=== PATIENT | female | born 1960 | race Caucasian/White ===

== ENCOUNTER 2018-05-15 15:06 | Emergency (ER) | payer SELFPAY ==
[2018-05-15 15:15] VITALS: BP 140/76
--- NOTE | 2018-05-15 15:19 | UC ---
General HPI - HPI Summary HPI Summary: Pleasant 58 yo female, brought here by coworker. C/o 6-7 chest pain, midsternal at work today approx 14:30. No hx of pain like this before. Currently pain 5-6. No sob. No GI issues. Does occasionally have "heartburn, " but only at night and very infrequently. Has not had HB sx in the past. No melena / brbpr. No urinary sx. No rash. Does not take antacids, nor asa. Reports has an indicator for Negin's dz, but does not have the syndrome. meds trazodone amlodipine allergies codeine pcn - History of Current Complaint Chief Complaint: UCChestPain Stated Complaint: CHEST COMPLAINT Hx Obtained From: Patient Pain Intensity: 5 - Allergy/Home Medications Allergies/Adverse Reactions: Allergies Allergy/AdvReac Type Severity Reaction Status Date / Time codeine Allergy Swelling Verified 05/15/18 16:25 Penicillins Allergy Swelling Verified 05/15/18 16:25 Home Medications: Home Medications amLODIPine TAB* [Norvasc 5 mg TAB*] 10 mg PO DAILY 05/15/18 [History Confirmed 05/15/18] traZODone TAB* [Desyrel TAB*] 50 mg PO BEDTIME 05/15/18 [History Confirmed 05/15] PMH/Surg Hx/FS Hx/Imm Hx Previously Healthy: No - Surgical History Surgical History: Yes Surgery Procedure, Year, and Place: partial hysterectomy - Family History Known Family History: Positive: Other - cancer - Social History Occupation: Employed Full-time Alcohol Use: Daily Substance Use Type: None Smoking Status (MU): Former Smoker Review of Systems All Other Systems Reviewed And Are Negative: Yes Constitutional: Positive: Other - see hpi Skin: Positive: Other - see hpi Eyes: Positive: Other - see hpi ENT: Positive: Other - see hpi Respiratory: Positive: Other - see hpi Cardiovascular: Positive: Other - see hpi Gastrointestinal: Positive: Other - see hpi Genitourinary: Positive: Other - see hpi Motor: Positive: Other - see hpi Neurovascular: Positive: Other Musculoskeletal: Positive: Other: - see hpi Neurological: Positive: Other - see hpi Psychological: Positive: Negative Is Patient Immunocompromised?: No Physical Exam Triage Information Reviewed: Yes Appearance: Well-Appearing, Well-Nourished - sitting up, conversing easily and appropriately in full sentences Vital Signs: Initial Vital Signs Temp 99.0 F 05/15/18 15:13 Pulse 73 05/15/18 15:13 Resp 18 05/15/18 15:13 BP 140/76 05/15/18 15:13 Pulse Ox 97 05/15/18 15:13 Vital Signs Reviewed: Yes Eye Exam: Normal - grossly normal ENT Exam: Normal Neck: Positive: Supple, Nontender Respiratory Exam: Normal, Other - some tender mid sternal area but w/o point tenderness Respiratory: Positive: Chest non-tender, Lungs clear, Normal breath sounds, No respiratory distress, No accessory muscle use Cardiovascular Exam: Normal Cardiovascular: Positive: RRR, No Murmur, Pulses Normal, Tachycardia Abdominal Exam: Normal Abdomen Description: Positive: Nontender Musculoskeletal Exam: Normal Neurological Exam: Normal - grossly nonfocal Psychological Exam: Normal - conversing easily and appropriately Skin Exam: Normal Course/Dx - Course Course Of Treatment: ekg nsr at 73 bpm Called ED 15:40. Providers occupied, per Miguel A at the [employer], charge nurse will be notified. Pt offered EMS, but respecfully declines. Friend will drive. [Asa 81 mg po x 4 ptd. Questions as posed answered to the best of my ability. - Diagnoses Provider Diagnosis: Chest pain Discharge - Sign-Out/Discharge Documenting (check all that apply): Patient Departure All imaging exams completed and their final reports reviewed: No Studies - Discharge Plan Condition: Guarded Disposition: HOME-RECOMMEND TO ED Patient Education Materials: Chest Pain (ED) Referrals: Nette Arguelles MD [Primary Care Provider] - Additional Instructions: Please go directly to the Emergency Department. Call 911 if problems in the meantime. - Billing Disposition and Condition Condition: GUARDED Disposition: Home-Recommend to ED
[2018-05-15] MEDS ORDERED: Aspirin 81 mg CHEW TAB* 81 MG TAB.CHEW PO ONE (15:37)
[2018-05-15] MEDS ORDERED: Aspirin 81 mg CHEW TAB* 81 MG TAB.CHEW ONE (15:38)
--- OUTSIDE RECORDS SUMMARY | 2018-05-15 15:40 | XMS REPORT | Continuity of Care Document ---
:1960 External Reference #:[id number] Author Name Nette Arguelles M.D. Address [address] [place] [address] Care Team Providers Name Role Phone Nette Arguelles M.D. Care Team Information Hand [employer] Unavailable Payers Date Identification Numbers Payment Provider Subscriber Effective: 2017 Policy Number: [id number] [employer] Group Name: [employer] [address] PayID: [id number] AUGIE Camilo [address] Effective: 2009 Policy Number: [id number] [employer] Expires: 2012 Group Name: [employer] [address] PayID: [id number] AUGIE Camilo [address] Effective: 2004 Policy Number: [id number] [employer] Russell Expires: 2009 Group Name: [employer] [address] PayID: [id number] AUGIE Camilo [address] Effective: 2012 Policy Number: [id number] [employer] Russell Expires: 2013 Group Name: [employer] Blue [address] PayID: [id number] AUGIE Camilo [address] Effective: 2014 Policy Number: [id number] [employer] Russell Expires: 2017 Group Name: [employer]gold [address] PayID: [id number] AUGIE Camilo [address] Advance Directives Description No Information Available Problems Date Description Provider Status Onset: 07/17/2011 Pure hypercholesterolemia Nette Arguelles M.D. Active Onset: 07/17/2011 Depressive disorder Nette Arguelles M.D. Active Family History Date Family Member(s) Observation Comments First Brother Glaucoma Dx around age 65 : (02/2012) First Sister due to Cancer First Sister Cancer, Cervical in 2012 Second Sister Diabetes type I Second Sister Thyroid Disease thierry's Social History Type Date Description Comments Sex Unknown Lives With Occupation [employer] Tobacco Use Start: Unknown End: Former Cigarette Smoker smoked less than 1 ppd Unknown from ages [age], none since Tobacco Use Start: Unknown End: Patient is a former smoker smoked less than 1 ppd Unknown from age [age]. (8-10 pack years) Allergies, Adverse Reactions, Alerts Date Description Reaction Status Severity Comments 07/17/2004 PCN Active Sweling In Face 03/13/2009 Hydrocodone Active Skin Itchy Medications Medication Date Status Form Strength Qnty SIG Indications Ordering Provider Fluticasone 04/24 Active Suspension 50mcg/Act 16gm nasal Propionate spray- 2 P. sprays each Blegen, nostril M.D. every day as directed Amlodipine 12/05 Active Tablets 10mg 90tab Take One I10 Nette Besylate s Tablet By P. Mouth Every Blegen, Day For M.D. High For Blood Pressure Lorazepam 05/20 Active Tablets 0.5mg 14tab Take 1/2 To s 1 Tablet By P. Mouth AT Blegen, Night as M.D. Needed For Anxiety; Max/Day 1Tablet Blood Pressure 05/16 Active Kit 1Cuff use to monitor P. Automatic With blood Blegen, Large Cuff pressure M.D. daily or as needed Trazodone HCL 01/22 Active Tablets 50mg 90tab Take One s Tablet By P. Mouth AT Blegen, Bedtime as M.D. Directed For Anxiety Or Sleep Ibuprofen 01/26 Active Tablets 200mg 1-2 PO prn Pain, P. Occasionall Blegen, y M.D. Vitamin D-3 05/28 Active Tablets 1000Unit 2000 Iu po qday for P. vitamin D Blegen, deficiency M.D. Amlodipine 05/16 Hx Tablets 5mg 90tab take one Nette Besylate s tablet by P. - mouth every Blegen, 12/05 day for M.D. blood pressure Fluoxetine HCL 03/20 Hx Capsules 20mg 90cap 1 by mouth s every day P. - as directed Blegen, 04/29 for anxiety .D. Lidocaine 05/27 Hx Solution 2% 100ml 15 697.0 Herlinda Viscous milliliters Nehal Whiteey 3 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 01/31 hours needed iswixh around intramuscul ar mouth and spit out) max 8 doses/day Fluticasone 01/26 Hx Suspension 50mcg/Act 1unit nasal 477.9 Nette Propionate s spray- 2 P. - sprays each Blegen, 07/24 nostril .. every day as directed Cyclobenzaprine 05/18 Hx Tablets 5mg 15tab 1-2 po qhs 724.5 Nette HCL s prn muscle P. - spasm, Blegen, 01/26 causes M.D. drowsiness Triamcinolone 10/21 Hx Cream 0.1% 30gra apply two Nette Acetonide ms times a day P. - for up to 2 Blegen, 01/31 weeks as M.D. needed for Rash on feet Omeprazole 03/[address] 20mg 30cap 1 po qam on 530.81 Herlinda s empty Nehal White stomach 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 05/18 L-Lysine 07/17 Hx Tablets prn cold Nette sores P. - Blegen, 05/27 M.D. Diclofenac 05/[address] 75mg 60tab 1 po qd to Nette Sodium s bid with P. - food prn Blegen, 05/18 arthritis M.D. pain, stop if stomach side effects- (wait to fill until patient calls) Cyclobenzaprine 09/19 Hx Tablets 5mg 20tab 1/2 to 2 po 724.5 Nette HCL s qhs prn P. - muscle Blegen, 05/28 spasm M.D. Acyclovir 11/27 Hx Tablets 400mg 15tab 1 po tid x 054.9 s 5 days prn P. - cold sores Blegen, 05/28 M.D. Omeprazole 07/[address] 20mg 30cap 1 po qam on s empty P. - stomach Blegen, 05/28 M.D. Ranitidine HCL 06/14 Hx Tablets 150mg 30tab 1 po bid s for P. - heartburn Blegen, 07/14 M.D. Ibuprofen 02/13 Hx Tablets 600mg 90tab 1 tid for 848.3 Shawnti s pain, take Jerel Neves, - with food 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 05/28 Hydrocodone-Acet 02/13 Hx Tablets 5-500mg 60six 1 or 2 po 848.3 Shawnti aminophen ty q6hr prn Jerel Neves, - severe pain 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 05/28 Lactulose 05/11 Hx Solution 10GM/15ML pint i 789.9 tablespoon K.W. - bid to qid Piotr, 05/28 prn M.D. constipatio n Valtrex 12/04 Hx Tablets 1gm 12tab 2 PO Q s Hours X 1 P. - Day prn Blegen, 05/28 Cold Sore M.D. Outbreak Multivitamins 10/31 Hx Tablets Nette P. - Blegen, 05/28 M.D. Valtrex 10/13 Hx Caplets 500mg 100ca one po bid ps at onset of P. - herpetic Blegen, 12/03 outbreak M.D. Acyclovir 10/13 Hx Ointment 5% 15gm use as 054.9 directed, K.W. - five times Piotr, 11/27 daily to M.D. herpetic lesions Fluoxetine Hx Capsules 40mg 0caps 1 PO qd Unknown /0000 - 02/04 Trazodone Hx Tablets 50mg 30tab 1 po qhs Nette /0000 s P. - Blegen, 01/22 M.D. /2015 Lorazepam 00/00 Hx Tablets 2mg One PO QHS Unknown /0000 prn- rarely - 05/20 Triamcinolone 00/ Hx Paste 0.1% Unknown Acetonide /0000 - 07/24 Immunizations CPT Code Status Date Vaccine Lot # [id number] Given 12/05/2016 Influenza Virus Vaccine, Quadrivalent, 3 Yr > [id number] Quad, Preserv Free [id number] Given 03/12/2016 Td Age 7 to adult (Tenivac, Decavac, Mass [id number] [employer]olog[employer]) [id number] Given 01/22/2016 Influenza Virus Vaccine, Quadrivalent, 3 Yr > Quad, Preserv Free 43422 Given 01/05/2015 Influenza Virus Vaccine, Quadrivalent, 3 Yr > Quad, Preserv Free 63590 Given 11/27/2009 Influenza Vaccine-Preservative Free 3 Yrs And [id number] Above 26467 Given 12/03/2006 Tdap (Adacel) [id number] Vital Signs Date Vital Result Comment 04/29/2018 10:13am Weight 192.38 lb Weight 87.261 kg BP Systolic 132 mmHg BP Diastolic 80 mmHg Heart Rate 74 /min Body Temperature 97.6 F Respiratory Rate 18 /min Height 65.5 inches 5'5.50" BMI (Body Mass Index) 31.5 kg/m2 O2 % BldC Oximetry 98 % 03/14/2018 11:07am Weight 189.00 lb Weight 85.730 kg BP Systolic 120 mmHg BP Diastolic 70 mmHg Heart Rate 72 /min Body Temperature 97.6 F O2 % BldC Oximetry 98 % 04/24/2017 9:28am Weight 175.00 lb Weight 79.380 kg BP Systolic 118 mmHg her cuff - 110/80 BP Diastolic 64 mmHg her cuff - 110/80 Heart Rate 76 /min Body Temperature 97.9 F Respiratory Rate 16 /min Height 66 inches 5'6" BMI (Body Mass Index) 28.2 kg/m2 01/30/2017 11:25am Weight 174.00 lb Weight 78.926 kg BP Systolic 118 mmHg BP Diastolic 64 mmHg Heart Rate 73 /min Body Temperature 96.3 F Respiratory Rate 18 /min O2 % BldC Oximetry 97 % 12/05/2016 12:38pm Weight 175.00 lb Weight 79.380 kg BP Systolic 138 mmHg BP Diastolic 80 mmHg Heart Rate 64 /min Body Temperature 97.8 F Respiratory Rate 16 /min 09/26/2016 10:53am Weight 173.00 lb Weight 78.473 kg BP Systolic 130 mmHg BP Diastolic 70 mmHg BP Systolic Recheck 128 mmHg BP Diastolic Recheck 78 mmHg Heart Rate 60 /min Body Temperature 98.5 F O2 % BldC Oximetry 98 % 07/24/2016 2:34pm Weight 178.38 lb Weight 80.911 kg BP Systolic 128 mmHg , her cuff 124/86 BP Diastolic 70 mmHg , her cuff 124/86 Heart Rate 78 /min Body Temperature 98.4 F Respiratory Rate 16 /min 05/20/2016 11:05am Weight 187.25 lb Weight 84.937 kg BP Systolic 126 mmHg 138/88 BP Diastolic 74 mmHg 138/88 Heart Rate 74 /min 03/12/2016 12:55pm Weight 198.00 lb Weight 89.813 kg BP Systolic 142 mmHg BP Diastolic 86 mmHg Heart Rate 70 /min Body Temperature 98.5 F Respiratory Rate 17 /min O2 % BldC Oximetry 99 % 02/05/2016 10:10am Weight 199.00 lb Weight 90.266 kg BP Systolic 140 mmHg BP Diastolic 78 mmHg Heart Rate 74 /min Body Temperature 97.4 F Respiratory Rate 18 /min Height 65.5 inches 5'5.50" BMI (Body Mass Index) 32.6 kg/m2 O2 % BldC Oximetry 98 % 01/31/2015 12:58pm Weight 205.00 lb Weight 92.988 kg BP Systolic 130 mmHg BP Diastolic 80 mmHg Heart Rate 72 /min Height 66 inches 5'6" BMI (Body Mass Index) 33.1 kg/m2 05/27/2014 2:55pm Weight 209.00 lb Weight 94.802 kg BP Systolic 132 mmHg BP Diastolic 84 mmHg Heart Rate 64 /min Body Temperature 97.7 F 01/26/2014 10:28am Weight 198.00 lb Weight 89.813 kg BP Systolic 122 mmHg BP Diastolic 74 mmHg Heart Rate 68 /min Height 66 inches 5'6" BMI (Body Mass Index) 32.0 kg/m2 09/17/2013 3:06pm Weight 200.00 lb Weight 90.720 kg BP Systolic 138 mmHg BP Diastolic 82 mmHg Heart Rate 72 /min 05/18/2013 4:00pm Weight 198.00 lb Weight 89.813 kg BP Systolic 124 mmHg BP Diastolic 74 mmHg Heart Rate 92 /min Body Temperature 99.3 F 10/21/2012 12:01pm Weight 187.00 lb Weight 84.823 kg BP Systolic 140 mmHg BP Diastolic 80 mmHg Heart Rate 72 /min Body Temperature 97.2 F 07/22/2012 8:01am Weight 196.00 lb Weight 88.906 kg BP Systolic 118 mmHg BP Diastolic 76 mmHg Heart Rate 74 /min Height 66 inches 5'6" BMI (Body Mass Index) 31.6 kg/m2 06/24/2012 11:49am Weight 202.00 lb Weight 91.627 kg BP Systolic 120 mmHg BP Diastolic 78 mmHg Heart Rate 86 /min Body Temperature 97.9 F 03/18/2012 11:30am Weight 202.00 lb Weight 91.627 kg BP Systolic 130 mmHg BP Diastolic 84 mmHg Heart Rate 62 /min Body Temperature 98.0 F O2 % BldC Oximetry 99 % 07/18/2011 9:37am Weight 200.00 lb Weight 90.720 kg BP Systolic 132 mmHg BP Diastolic 90 mmHg Heart Rate 80 /min Height 66.5 inches 5'6.50" BMI (Body Mass Index) 31.8 kg/m2 05/29/2011 11:50am Weight 203.00 lb Weight 92.081 kg BP Systolic 120 mmHg BP Diastolic 70 mmHg Heart Rate 72 /min 12/18/2010 9:14am Weight 191.00 lb Weight 86.638 kg BP Systolic 140 mmHg BP Diastolic 78 mmHg Heart Rate 64 /min 09/19/2010 2:47pm Weight 192.00 lb Weight 87.091 kg BP Systolic 110 mmHg BP Diastolic 68 mmHg Heart Rate 66 /min 11/27/2009 10:10am Weight 199.00 lb Weight 90.266 kg BP Systolic 138 mmHg BP Diastolic 90 mmHg Heart Rate 88 /min Height 66.5 inches 5'6.50" BMI (Body Mass Index) 31.6 kg/m2 06/14/2009 11:04am Weight 203.00 lb Weight 92.081 kg BP Systolic 130 mmHg BP Diastolic 80 mmHg Heart Rate 64 /min O2 % BldC Oximetry 98 % AT Room Air 03/13/2009 11:42am Weight 202.00 lb Weight 91.627 kg BP Systolic 118 mmHg BP Diastolic 82 mmHg Heart Rate 78 /min O2 % BldC Oximetry 98 % 02/13/2009 4:27pm Weight 201.00 lb Weight 91.174 kg BP Systolic 150 mmHg BP Diastolic 102 mmHg Heart Rate 104 /min 08/03/2008 10:17am Weight 187.00 lb Weight 84.823 kg BP Systolic 130 mmHg BP Diastolic 80 mmHg Heart Rate 60 /min Height 66 inches 5'6" BMI (Body Mass Index) 30.2 kg/m2 05/11/2008 12:30pm Weight 194.00 lb Weight 87.998 kg BP Systolic 136 mmHg BP Diastolic 90 mmHg Heart Rate 72 /min 05/12/2007 4:40pm Weight 190.00 lb Weight 86.184 kg BP Systolic 118 mmHg BP Diastolic 70 mmHg Heart Rate 62 /min Height 66.5 inches 5'6.50" BMI (Body Mass Index) 30.2 kg/m2 12/03/2006 9:31am Weight 181.00 lb Weight 82.102 kg BP Systolic 120 mmHg BP Diastolic 60 mmHg Heart Rate 68 /min Height 66.5 inches 5'6.50" BMI (Body Mass Index) 28.8 kg/m2 01/13/2006 11:38am Weight 168.00 lb Weight 76.205 kg BP Systolic 110 mmHg BP Diastolic 68 mmHg Heart Rate 62 /min Height 65.5 inches 5'5.50" BMI (Body Mass Index) 27.5 kg/m2 12/31/2005 9:02am Weight 164.00 lb Weight 74.390 kg BP Systolic 120 mmHg BP Diastolic 68 mmHg Body Temperature 97.1 F Height 65.5 inches 5'5.50" BMI (Body Mass Index) 26.9 kg/m2 08/14/2005 11:14am Weight 173.50 lb Weight 78.700 kg BP Systolic 102 mmHg BP Diastolic 70 mmHg Heart Rate 64 /min Height 65.5 inches 5'5.50" BMI (Body Mass Index) 28.4 kg/m2 01/30/2005 11:19am Weight 180.00 lb Weight 81.648 kg BP Systolic 110 mmHg BP Diastolic 70 mmHg Heart Rate 80 /min Height 65.5 inches 5'5.50" BMI (Body Mass Index) 29.5 kg/m2 10/31/2004 9:09am Weight 174.00 lb Weight 78.926 kg BP Systolic 138 mmHg BP Diastolic 80 mmHg Heart Rate 84 /min Height 65.5 inches 5'5.50" BMI (Body Mass Index) 28.5 kg/m2 Last Menstrual Period [id number] 10/13/2004 9:37am Weight 176.00 lb With Shoes Weight 79.834 kg Height 65.5 inches 5'5.50" BMI (Body Mass Index) 28.8 kg/m2 07/17/2004 3:24pm Weight 178.00 lb Weight 80.741 kg BP Systolic 124 mmHg BP Diastolic 68 mmHg Heart Rate 88 /min Height 65.5 inches 5'5.50" BMI (Body Mass Index) 29.2 kg/m2 Last Menstrual Period [id number] Results Test Date Facility Test Result H/L Range Note Urine DIP 04/29/2018 In House Lab Leukocytes NEG Neg (607)- - Urine Nitrites NEG Neg Urobilinogen NORMN Norm Total Protein Urine NEG Neg Urine pH 6 5-6 Urine Blood NEG Neg Specific [place] 1.010 1.01-1.02 Urine Ketones NEG Neg Urine Bilirubin NEG Neg Urine Glucose NORM Norm Laboratory test 04/29/2017 [facility] Vitamin D 27.1 ng/mL N 20-50 1 finding [phone] Total 25(Oh) Hemoglobin A1c (Glyco HGB) 5.1 % N 4.0-5.6 2 TSH (Thyroid Stim Horm) 2.28 mcIU/mL N 0.34-5.60 3 Free T4 (Free Thyroxine) 0.84 ng/dL N 0.61-1.12 4 Lipid Profile 04/29/2017 [facility] Triglycerides 60 mg/dL 5 (Trig/Chol/HDL) [phone] Cholesterol 219 mg/dL 6 HDL Cholesterol 72.9 mg/dL 7 LDL Cholesterol 134 mg/dL 8 Comp Metabolic Panel 04/29/2017 [facility] Sodium 135 mmol/L N 133-145 [phone] Potassium 4.6 mmol/L N 3.5-5.0 Chloride 101 mmol/L N 101-111 Co2 Carbon Dioxide 28 mmol/L N 22-32 Anion Gap 6 mmol/L N 2-11 Glucose 93 mg/dL N 70-100 Blood Urea Nitrogen 19 mg/dL N 6-24 Creatinine 0.77 mg/dL N 0.51-0.95 BUN/Creatinine Ratio 24.7 High 8-20 Calcium 9.5 mg/dL N 8.6-10.3 Total Protein 7.1 g/dL N 6.4-8.9 Albumin 4.4 g/dL N 3.2-5.2 Globulin 2.7 g/dL N 2-4 Albumin/Globulin Ratio 1.6 N 1-3 Total Bilirubin 0.40 mg/dL N 0.2-1.0 Alkaline Phosphatase 53 U/L N 34-104 Alt 26 U/L N 7-52 Ast 24 U/L N 13-39 Egfr Non- 77.3 >60 Egfr 99.4 >60 9 Laboratory 04/24/2017 [facility] Cytology SEE RESULT 10 test finding [phone] BELOW Laboratory 12/05/2016 [facility] Hepatitis C Nonreactive N Nonreactive 11 test finding [phone] Antibody CBC Auto Diff 09/26/2016 [facility] White Blood 5.5 10^3/uL N 3.5-10.8 [phone] Count Red Blood Count 4.66 10^6/uL N 4.0-5.4 Hemoglobin 13.7 g/dL N 12.0-16.0 Hematocrit 41 % N 35-47 Mean Corpuscular Volume 88 fL N 80-97 Mean Corpuscular Hemoglobin 30 pg N 27-31 Mean Corpuscular HGB Conc 34 g/dL N 31-36 Red Cell Distribution Width 14 % N 10.5-15 Platelet Count 258 10^3/uL N 150-450 Mean Platelet Volume 8 um3 N 7.4-10.4 Abs Neutrophils 3.1 10^3/uL N 1.5-7.7 Abs Lymphocytes 1.9 10^3/uL N 1.0-4.8 Abs Monocytes 0.4 10^3/uL N 0-0.8 Abs Eosinophils 0.1 10^3/uL N 0-0.6 Abs Basophils 0.1 10^3/uL N 0-0.2 Abs Nucleated RBC 0 10^3/uL N Granulocyte % 57.0 % N 38-83 Lymphocyte % 33.8 % N 25-47 Monocyte % 7.0 % N 1-9 Eosinophil % 0.9 % N 0-6 Basophil % 1.3 % N 0-2 Nucleated Red Blood Cells % 0.1 N Comp Metabolic Panel 09/26/2016 [facility] Sodium 133 mmol/L N 133-145 [phone] Potassium 4.4 mmol/L N 3.5-5.0 Chloride 99 mmol/L Low 101-111 Co2 Carbon Dioxide 26 mmol/L N 22-32 Anion Gap 8 mmol/L N 2-11 Glucose 74 mg/dL N 70-100 Blood Urea Nitrogen 18 mg/dL N 6-24 Creatinine 0.83 mg/dL N 0.51-0.95 BUN/Creatinine Ratio 21.7 High 8-20 Calcium 9.3 mg/dL N 8.6-10.3 Total Protein 6.9 g/dL N 6.4-8.9 Albumin 4.3 g/dL N 3.2-5.2 Globulin 2.6 g/dL N 2-4 Albumin/Globulin Ratio 1.7 N 1-3 Total Bilirubin 0.50 mg/dL N 0.2-1.0 Alkaline Phosphatase 49 U/L N 34-104 Alt 16 U/L N 7-52 Ast 18 U/L N 13-39 Egfr Non- 71.1 N >60 Egfr 91.5 N >60 12 Inr/Protime 09/26/2016 [facility] Inr 0.95 N 0.89- 1.11 [phone] Laboratory test 09/26/2016 [facility] Partial 32.9 seconds N 26.0-36.3 finding [phone] Thrombo Time PTT Laboratory test 02/05/2016 [facility] TSH (Thyroid 3.19 mcIU/mL N 0.34-5.60 13 finding [phone] Stim Horm) Free T4 (Free Thyroxine) 0.68 ng/dL N 0.61-1.12 14 Hemoglobin A1c (Glyco HGB) 5.5 % N Less than 6.0 15 Vitamin D Total 25(Oh) 25.7 ng/mL Low 30-50 16 Comp Metabolic Panel 02/05/2016 [facility] Sodium 133 mmol/L N 133-145 [phone] Potassium 4.2 mmol/L N 3.5-5.0 Chloride 100 mmol/L Low 101-111 Co2 Carbon Dioxide 29 mmol/L N 22-32 Anion Gap 4 mmol/L N 2-11 Glucose 79 mg/dL N 70-100 Blood Urea Nitrogen 16 mg/dL N 6-24 Creatinine 0.81 mg/dL N 0.51-0.95 BUN/Creatinine Ratio 19.8 N 8-20 Calcium 9.7 mg/dL N 8.6-10.3 Total Protein 7.3 g/dL N 6.4-8.9 Albumin 4.5 g/dL N 3.2-5.2 Globulin 2.8 g/dL N 2-4 Albumin/Globulin Ratio 1.6 N 1-3 Total Bilirubin 0.40 mg/dL N 0.2-1.0 Alkaline Phosphatase 63 U/L N 34-104 Alt 23 U/L N 7-52 Ast 21 U/L N 13-39 Egfr Non- 73.1 N >60 Egfr 94.1 N >60 17 Lipid Profile 02/05/2016 [facility] Triglycerides 160 mg/dL N 18 (Trig/Chol/HDL) [phone] Cholesterol 276 mg/dL N 19 HDL Cholesterol 78.5 mg/dL N 20 LDL Cholesterol 166 mg/dL N 21 CBC Auto Diff 02/05/2016 [facility] White Blood 5.9 10^3/uL N 3.5-10.8 [phone] Count Red Blood Count 4.80 10^6/uL N 4.0-5.4 Hemoglobin 14.4 g/dL N 12.0-16.0 Hematocrit 42 % N 35-47 Mean Corpuscular Volume 88 fL N 80-97 Mean Corpuscular Hemoglobin 30 pg N 27-31 Mean Corpuscular HGB Conc 34 g/dL N 31-36 Red Cell Distribution Width 14 % N 10.5-15 Platelet Count 302 10^3/uL N 150-450 Mean Platelet Volume 8 um3 N 7.4-10.4 Abs Neutrophils 3.4 10^3/uL N 1.5-7.7 Abs Lymphocytes 1.9 10^3/uL N 1.0-4.8 Abs Monocytes 0.5 10^3/uL N 0-0.8 Abs Eosinophils 0 10^3/uL N 0-0.6 Abs Basophils 0.1 10^3/uL N 0-0.2 Abs Nucleated RBC 0.01 10^3/uL N Granulocyte % 57.9 % N 38-83 Lymphocyte % 31.9 % N 25-47 Monocyte % 7.8 % N 1-9 Eosinophil % 0.6 % N 0-6 Basophil % 1.8 % N 0-2 Nucleated Red Blood Cells % 0.1 N Urine DIP 02/05/2016 In House Lab Leukocytes neg Neg (607)- - Urine Nitrites neg Neg Urobilinogen norm Norm Total Protein, Urine neg Neg Urine pH 5 5-6 Urine Blood neg Neg Specific [place] 1.010 1.01-1.02 Urine Ketones neg Neg Urine Bilirubin neg Neg Urine Glucose norm Norm Lipid Profile 01/31/2015 [facility] Triglycerides 175 mg/dL N 22 (Trig/Chol/HDL) [phone] Cholesterol 247 mg/dL N 23 HDL Cholesterol 63.7 mg/dL N 24 LDL Cholesterol 148 mg/dL N 25 Comp Metabolic Panel 01/31/2015 [facility] Sodium 134 mmol/L N 133-145 [phone] Potassium 4.5 mmol/L N 3.5-5.0 Chloride 101 mmol/L N 101-111 Co2 Carbon Dioxide 27 mmol/L N 22-32 Anion Gap 6 mmol/L N 2-11 Glucose 87 mg/dL N 70-100 Blood Urea Nitrogen 20 mg/dL N 6-24 Creatinine 0.80 mg/dL N 0.51-0.95 BUN/Creatinine Ratio 25.0 High 8-20 Calcium 9.3 mg/dL N 8.6-10.3 Total Protein 7.1 g/dL N 6.4-8.9 Albumin 4.4 g/dL N 3.2-5.2 Globulin 2.7 g/dL N 2-4 Albumin/Globulin Ratio 1.6 N 1-3 Total Bilirubin 0.30 mg/dL N 0.2-1.0 Alkaline Phosphatase 67 U/L N 34-104 Alt 34 U/L N 7-52 Ast 34 U/L N 13-39 Egfr Non- 74.7 N >60 Egfr 96.1 N >60 26 CBC Auto Diff 01/31/2015 [facility] White Blood 6.8 10^3/uL N 4.8-10.8 [phone] Count Red Blood Count 4.50 10^6/uL N 4.0-5.4 Hemoglobin 13.6 g/dL N 12.0-16.0 Hematocrit 40 % N 35-47 Mean Corpuscular Volume 89 fL N 80-97 Mean Corpuscular Hemoglobin 30 pg N 27-31 Mean Corpuscular HGB Conc 34 g/dL N 31-36 Red Cell Distribution Width 14 % N 10.5-15 Platelet Count 282 10^3/uL N 150-450 Mean Platelet Volume 8 um3 N 7.4-10.4 Abs Neutrophils 4.7 10^3/uL N 1.5-7.7 Abs Lymphocytes 1.4 10^3/uL N 1.0-4.8 Abs Monocytes 0.5 10^3/uL N 0-0.8 Abs Eosinophils 0.1 10^3/uL N 0-0.6 Abs Basophils 0.1 10^3/uL N 0-0.2 Abs Nucleated RBC 0.01 10^3/uL N Granulocyte % 68.7 % N 38-83 Lymphocyte % 21.4 % Low 25-47 Monocyte % 7.7 % N 1-9 Eosinophil % 1.1 % N 0-6 Basophil % 1.1 % N 0-2 Nucleated Red Blood Cells % 0.1 N Laboratory test 01/31/2015 [facility] TSH (Thyroid 2.74 ?IU/mL N 0.34-5.60 finding [phone] Stim Horm) Vitamin D Total 25(Oh) 24.2 ng/mL Low 30-50 Hemoglobin A1c (Glyco HGB) 5.8 % N Less than 6.0 27 Free T4 (Free Thyroxine) 0.80 ng/mL N 0.61-1.12 Urine DIP 01/31/2015 In House Lab Specific [place] 1.020 1.01-1.02 (607)- - Urine pH 5 5-6 Leukocytes NEG Neg Urine Nitrites NEG Neg Total Protein, Urine NEG Neg Urine Glucose NORM Norm Urine Ketones NEG Neg Urobilinogen NORM Norm Urine Bilirubin NEG Neg Urine Blood NEG Neg CBC No Diff 01/26/2014 [facility] White Blood 5.6 10^ 3/uL N 4.8-10.8 28 [phone] Count Red Blood Count 4.66 10^6/uL N 4.0-5.4 Hemoglobin 13.6 g/dL N 12.0-16.0 Hematocrit 40 % N 35-47 Mean Corpuscular Volume 85 fL N 80-97 Mean Corpuscular Hemoglobin 29 pg N 27-31 Mean Corpuscular HGB Conc 34 g/dL N 31-36 Red Cell Distribution Width 13 % N 10.5-15 Platelet Count 292 10^3/uL N 150-450 Mean Platelet Volume 8 um3 N 7.4-10.4 Comp Metabolic Panel 01/26/2014 [facility] Sodium 135 mmol/L N 133-145 [phone] Potassium 4.2 mmol/L N 3.5-5.0 29 Chloride 101 mmol/L N 101-111 Co2 Carbon Dioxide 29 mmol/L N 22-32 Anion Gap 5 mmol/L N 2-11 Glucose 88 mg/dL N 70-100 Blood Urea Nitrogen 14 mg/dL N 6-24 Creatinine 0.73 mg/dL N 0.51-0.95 BUN/Creatinine Ratio 19.2 N 8-20 Calcium 9.5 mg/dL N 8.6-10.3 Total Protein 7.0 g/dL N 6.4-8.9 Albumin 4.4 g/dL N 3.2-5.2 Globulin 2.6 g/dL N 2-4 Albumin/Globulin Ratio 1.7 N 1-3 Total Bilirubin 0.30 mg/dL N 0.2-1.0 Alkaline Phosphatase 67 U/L N 34-104 Alt 32 U/L N 7-52 Ast 23 U/L N 13-39 Egfr Non- 83.4 N >60 Egfr 107.2 N >60 30 Laboratory test 01/26/2014 [facility] TSH (Thyroid 2.40 N 0.34-5.60 31 finding [phone] Stimulating IU/mL Horm) Free T4 0.82 ng/mL N 0.61-1.12 32 Vitamin B12 499 pg/mL N 180-914 33 Vitamin D, 25 01/26/2014 [facility] 25-Hydroxy Vitamin <4.0 ng/mL N Hydroxy [phone] D2 25-Hydroxy Vitamin D3 31 ng/mL N 25-Hydroxy Vitamin D Total 31 ng/mL N 34 Laboratory test 01/26/2014 [facility] Hemoglobin A1c 5.6 % N Less than 35 finding [phone] 6.0 Laboratory test 10/21/2012 [facility] Fungal Cult - ( SEE 36 finding [phone] Other Sources NOTE) Fungal Smear (SEE NOTE) 37 Laboratory test 10/21/2012 [facility] Surgical RUN DATE: 38 finding [phone] Pathology SEE NOTE> CBC With Manual 10/21/2012 [facility] White Blood 4.9 10^3/uL 4.8-10 Diff [phone] Count .8 Red Blood Count 4.26 10^6/uL 4.0-5.4 Hemoglobin 12.9 g/dL 12.0-16.0 Hematocrit 38 % 35-47 Mean Corpuscular Volume 89 fL 80-97 Mean Corpuscular Hemoglobin 30 pg 27-31 Mean Corpuscular HGB Conc 34 g/dL 31-36 Red Cell Distribution Width 13 % 10.5-15 Platelet Count 281 10^3/uL 150-450 Mean Platelet Volume 8 um3 7.4-10.4 Abs Neutrophils 2.9 10^3/uL 1.5-7.7 Abs Lymphocytes 1.5 10^3/uL 1.0-4.8 Abs Monocytes 0.4 10^3/uL 0-0.8 Abs Eosinophils 0 10^3/uL 0-0.6 Abs Basophils 0.1 10^3/uL 0-0.2 Abs Nucleated RBC 0.01 10^3/uL Neutrophil % 50 % 38-83 Lymphocytes % 35 % 25-47 Monocytes % 11 % 0-13 Basophil % 4 % High 0-2 RBC Morphology Normal Normal Laboratory test 10/21/2012 [facility] Radha (Anti- Nuclear Negative Negative finding [phone]) Screen Anti Double Stranded Dna Negative Negative Erythrocyte Sed Rate 10 mm/Hr 0-30 Human Papilloma 07/23/2012 [facility] Human Papillomavirus See Comment 39 Virus [phone] Source Human Papillomavirus High Risk Negative Negative 40 CBC Auto 07/22/2012 [facility] White Blood 4.4 10^3/ uL Low 4.8-10.8 Diff [phone] Count Red Blood Count 4.52 10^6/uL 4.0-5.4 Hemoglobin 13.5 g/dL 12.0-16.0 Hematocrit 39 % 35-47 Mean Corpuscular Volume 87 fL 80-97 Mean Corpuscular Hemoglobin 30 pg 27-31 Mean Corpuscular HGB Conc 34 g/dL 31-36 Red Cell Distribution Width 13 % 10.5-15 Platelet Count 255 10^3/uL 150-450 Mean Platelet Volume 8 um3 7.4-10.4 Abs Neutrophils 2.3 10^3/uL 1.5-7.7 Abs Lymphocytes 1.5 10^3/uL 1.0-4.8 Abs Monocytes 0.5 10^3/uL 0-0.8 Abs Eosinophils 0.1 10^3/uL 0-0.6 Abs Basophils 0.1 10^3/uL 0-0.2 Abs Nucleated RBC 0.01 10^3/uL Granulocyte % 51.9 % 38-83 Lymphocyte % 34.1 % 25-47 Monocyte % 10.4 % High 1-9 Eosinophil % 1.7 % 0-6 Basophil % 1.9 % 0-2 Nucleated Red Blood Cells % 0.1 Comp Metabolic Panel 07/22/2012 [facility] Sodium 137 mmol/L 133-145 [phone] Potassium 4.6 mmol/L 3.5-5.0 Chloride 105 mmol/L 101-111 Co2 Carbon Dioxide 26.0 mmol/L 22-32 Anion Gap 6.0 mmol/L 2-11 Glucose 87 mg/dL 70-100 Blood Urea Nitrogen 17 mg/dL 6-24 Creatinine 0.80 mg/dL 0.50-1.40 BUN/Creatinine Ratio 21.3 High 8-20 Calcium 9.5 mg/dL 8.1-9.9 Total Protein 6.6 g/dL 6.2-8.1 Albumin 4.3 g/dL 3.6-5.4 Globulin 2.3 g/dL 2-4 Albumin/Globulin Ratio 1.9 1-3 Total Bilirubin 0.5 mg/dL 0.4-1.5 Alkaline Phosphatase 74 U/L 30-110 Alt 29 U/L 14-54 Ast 33 U/L 12-42 Egfr Non- 75.3 >60 Egfr 96.9 >60 41 Lipid Profile 07/22/2012 [facility] Triglycerides 55 mg/dL 40-200 (Trig/Chol/HDL) [phone] Cholesterol 204 mg/dL High Less than 200 HDL Cholesterol 59 mg/dL 40-60 42 Cholesterol/HDL Ratio 3.5 Average 1-4.44 LDL Cholesterol 134.0 mg/dL High Less Than 100 43 Urine DIP 07/22/2012 [facility] House [facility] Leukocytes NEG Neg (607)- - Urine Nitrites NEG Neg Urine pH 5 5-6 Total Protein, Urine 1+ High Neg Urine Glucose NORM Norm Urine Ketones NEG Neg Urobilinogen NORM Norm Urine Bilirubin NEG Neg Urine Blood NEG Neg Specific [place] 1.010 1.01-1.02 Laboratory test 07/22/2012 [facility] Cytology RUN DATE: 44 finding [phone] 07/23/ <SEE NOTE> Laboratory test 07/18/2011 [facility] FSH 63.02 MIU/ ML 45 finding [phone] Uric Acid 5.8 mg/dL 2.6-7.2 Vitamin B12 333 pg/mL 180-914 Vitamin D, 25 07/18/2011 [facility] 25-Hydroxy Vitamin <4.0 ng/mL () Hydroxy [phone] D2 25-Hydroxy Vitamin D3 31 ng/mL () 25-Hydroxy Vitamin D Total 31 ng/mL () 46 Urine DIP 07/18/2011 [facility] House [facility] Leukocytes 1+ High Neg (607)- - Urine Nitrites NEG Neg Urine pH 5 5-6 Total Protein, Urine NEG Neg Urine Glucose NORM Norm Urine Ketones NEG Neg Urobilinogen NORM Norm Urine Bilirubin NEG Neg Urine Blood NEGN Neg Specific [place] NA Low 1.01-1.02 Laboratory test 05/29/2011 [facility] TSH 2.05 MIU/ ML 0.34-5.60 finding [phone] Thyroxine Free 0.79 ng/dL 0.61-1.24 Comp Metabolic Panel 05/29/2011 [facility] Sodium 135 mmol/L 135-145 [phone] Potassium 4.2 mmol/L 3.5-5.0 Chloride 104 mmol/L 101-111 Co2 (Carbon Dioxide) 25.0 mmol/L 22-32 Anion Gap 6.0 mmol/L 2-11 47 Glucose 93 mg/dL 70-100 BUN 16 mg/dL 6-24 Creatinine 0.7 mg/dL 0.50-1.40 One Over Creatinine 1.42 BUN/Creatinine Ratio 22.9 High 8-20 Calcium 8.7 mg/dL 8.1-9.9 Total Protein 6.6 GM/DL 6.2-8.1 Albumin 4.0 GM/DL 3.6-5.4 Globulin 2.6 GM/DL 2-4 Albumin/Globulin Ratio 1.5 1-3 Bilirubin Total 0.6 mg/dL 0.4-1.5 48 Alkaline Phosphatase 56 U/L 30-110 Alt (SGPT) 23 U/L 14-54 Ast (Sgot) 29 U/L 12-42 eGFR Non- 88.2 > 60 eGFR 113.5 > 60 49 CBC Auto Diff 05/29/2011 [facility] White Blood 4.4 CUMM Low 4.8-10.8 [phone] Count Red Cell Count 3.95 CUMM Low 4.2-5.4 Hemoglobin 12.1 g/dL 12.0-16.0 Hematocrit 35 % 35-47 Mean Corpuscular Volume 87 um3 79-97 Mean Corpuscular Hemoglob 31 pg 27-31 Mean Corpuscular HGB Cone 35 g/dL 32-36 Redcell Distribution WDTH 13 % 10.5-15 Platelet Count 266 CUMM 150-450 Mean Platelet Volume 8.3 um3 7.4-10.4 Gran % 58.1 % 38-83 Lymph % 31.8 % 25-47 Mononuclear % 8.5 % 1-9 Eosinophil % 0.9 % 0-6 Basophil % 0.7 % 0-2 Abs Lymphs 1.4 1.0-4.8 Abs Mononuclear 0.4 0-0.8 Absolute Neutrophil Count 2.6 1.5-7.7 Abs Eosinophils 0 0-0.6 Abs Basophils 0 0-0.2 Laboratory test 05/29/2011 [facility] Rheumatoid < 15 IU/mL <15 50 finding [phone] Factor Cyclic Citrullinated Pep Igg <15.6 U () 51 Lyme Western 05/29/2011 [facility] Lyme Igg Negative Negative Blot Specialty [phone] Western Blot Lyme Igg Bands Detected p41, kDa () Lyme Igm Western Blot Negative Negative Lyme Igm Bands Detected p23, kDa () Lyme Disease Interpretation . () 52 Radha (Antinuclear 05/29/2011 [facility] Antinuclear AB NEGATIVE Negative Antibodies) [phone] Laboratory test 05/29/2011 [facility] Erythrocyte Sed 13 MM/HR 0-30 finding [phone] Rate C Reactive Protein 0.5 mg/dL Less Than 0.5 Laboratory test 05/29/2011 [facility] Anti Dna NEGATIVE Negative finding [phone] (Double Stranded Dna) Urine DIP 09/19/2010 [facility] House Lab Leukocytes NEG Neg (607)- - Urine Nitrites NEG Neg Urine pH 5 5-6 Total Protein, Urine NEG Neg Urine Glucose NORM Norm Urine Ketones NEG Neg Urobilinogen NORM Norm Urine Bilirubin NEG Neg Urine Blood NEG Neg Specific [place] NA Low 1.01-1.02 Laboratory test 11/27/2009 [facility] TSH 2.40 MIU/ ML 0.34-5.60 finding [phone] Thyroxine Free 0.77 NG/ML 0.61-1.24 Lipid Profile 11/27/2009 [facility] Triglyceride 152 mg/dL 40-200 (Trig/Chol/HDL) [phone] Cholesterol 218 mg/dL High Less Than 200 53 High Density Lipoprotein 66 mg/dL High 40-60 54 Cholesterol/HDL Ratio 3.30 AVERAGE 1-4.44 Low Density Lipoprotein 122 mg/dL High Less Than 100 55 Urine DIP 11/27/2009 [facility] House Lab Leukocytes NEG Neg (607)- - Urine Nitrites NEG Neg Urine pH 7 High 5-6 Total Protein, Urine NEG Neg Urine Glucose NORM Norm Urine Ketones NEG Neg Urobilinogen NORM Norm Urine Bilirubin NEG Neg Urine Blood NEG Neg Specific [place] NA Low 1.01-1.02 Laboratory 11/27/2009 [facility] Cytology ----- 56 test finding [phone] <SEE NOTE> Laboratory 06/14/2009 [facility] Thyroperoxidase 65.1 IU/mL Abnormal < 57 test finding [phone] AB 9 . 0 CBC With 06/14/2009 [facility] White Blood 5.2 CUMM 4 Electronic [phone] Count . Diff 8 - 1 0 . 8 Red Cell Count 4.45 CUMM 4.2-5.4 Hemoglobin 13.9 g/dL 12.0-16.0 Hematocrit 40 % 35-47 Mean Corpuscular Volume 90 um3 79-97 Mean Corpuscular Hemoglob 31 pg 27-31 Mean Corpuscular HGB Cone 35 g/dL 32-36 Redcell Distribution WDTH 13 % 10.5-15 Platelet Count 282 CUMM 150-450 Mean Platelet Volume 7.6 um3 7.4-10.4 Gran % 64.8 % 38-83 Lymph % 25.6 % 25-47 Mononuclear % 8.6 % 1-9 Eosinophil % 0.5 % 0-6 Basophil % 0.5 % 0-2 Abs Lymphs 1.3 1.0-4.8 Abs Mononuclear 0.4 0-0.8 Absolute Neutrophil Count 3.4 1.5-7.7 Abs Eosinophils 0 0-0.6 Abs Basophils 0 0-0.2 Comp Metabolic 06/14/2009 [facility] Sodium 133 mmol/ L Low 135-145 Panel [phone] Potassium 4.6 mmol/L 3.5-5.0 Chloride 98 mmol/L Low 101-111 Co2 (Carbon Dioxide) 26.0 mmol/L 22-32 Anion Gap 9.0 mmol/L 2-11 58 Glucose 85 mg/dL 70-100 59 BUN 15 mg/dL 6-24 Creatinine 0.80 mg/dL 0.50-1.40 One Over Creatinine 1.20 BUN/Creatinine Ratio 18.8 8-20 Calcium 9.3 mg/dL 8.1-9.9 60 Total Protein 6.7 GM/DL 6.2-8.1 Albumin 4.2 GM/DL 3.6-5.4 Globulin 2.5 GM/DL 2-4 Albumin/Globulin Ratio 1.7 1-3 Bilirubin Total 0.6 mg/dL 0.4-1.5 61 Alkaline Phosphatase 49 U/L 30-110 Alt (SGPT) 23 U/L 14-54 Ast (Sgot) 26 U/L 12-42 eGFR Non- 81.0 > 60 eGFR 98.0 > 60 62 Laboratory test 06/14/2009 [facility] Thyroxine Free 0.72 NG/ML 0.61-1.24 63 finding [phone] TSH 1.60 MIU/ML 0.34-5.60 Laboratory test 08/03/2008 [facility] Cytology ------ 64 finding [phone] <SEE NOTE> Vitamin D.25 08/03/2008 [facility] 25-Hydroxy <4.0 ng /mL () Hydroxy [phone] Vitamin D2 25-Hydroxy Vitamin D3 32 ng/mL () 25-Hydroxy Vitamin D Total 32 ng/mL () 65 Laboratory test 08/03/2008 [facility] CPK (Creatine 166 U/L 0-170 finding [phone] Kinase) Lyme Western 08/03/2008 [facility] Lyme Disease Negative Negative 66 Blot Specialty [phone] Igg Western Blot Lyme Disease Igm Western Blot Negative Negative 67 Lyme Disease Interpretation . () 68 Laboratory test 08/03/2008 [facility] Vitamin B12 430 pg/mL 180-914 finding [phone] Urine DIP 08/03/2008 In House Lab Leukocytes NEG Neg (607)- - Urine Nitrites NEG Neg Urine pH 5 5-6 Total Protein, Urine NEG Neg Urine Glucose NORM Norm Urine Ketones NEG Neg Urobilinogen NORM Norm Urine Bilirubin NEG Neg Urine Blood NEG Neg Specific [place] NA Low 1.01-1.02 Laboratory test 05/11/2008 [facility] TSH 2.14 MIU/ ML 0.34-5.60 finding [phone] Troponin-I (TnI) 0.03 NG/ML 0-0.06 69 CBC With 05/11/2008 [facility] White Blood 5.4 CUMM 4.8-10.8 Electronic Diff [phone] Count Red Cell Count 4.32 CUMM 4.2-5.4 Hemoglobin 13.1 g/dL 12.0-16.0 Hematocrit 37 % 35-47 Mean Corpuscular Volume 86 um3 79-97 Mean Corpuscular Hemoglob 30 pg 27-31 Mean Corpuscular HGB Cone 35 g/dL 32-36 Redcell Distribution WDTH 13 % 10.5-15 Platelet Count 296 CUMM 150-450 Mean Platelet Volume 8.2 um3 7.4-10.4 Gran % 66.4 % 38-83 Lymph % 24.7 % Low 25-47 Mononuclear % 7.4 % 1-9 Eosinophil % 0.6 % 0-6 Basophil % 0.9 % 0-2 Abs Lymphs 1.3 1.0-4.8 Abs Mononuclear 0.4 0-0.8 Absolute Neutrophil Count 3.6 1.5-7.7 Abs Eosinophils 0 0-0.6 Abs Basophils 0 0-0.2 Comp Metabolic 05/11/2008 [facility] Sodium 134 mmol/ L Low 135-145 Panel [phone] Potassium 4.0 mmol/L 3.5-5.0 Chloride 101 mmol/L 101-111 Co2 (Carbon Dioxide) 28.0 mmol/L 22-32 Anion Gap 5.0 mmol/L 2-11 70 Glucose 81 mg/dL 70-100 71 BUN 12 mg/dL 6-24 Creatinine 0.70 mg/dL 0.50-1.40 One Over Creatinine 1.40 BUN/Creatinine Ratio 17.1 8-20 Calcium 9.1 mg/dL 8.1-9.9 72 Total Protein 6.7 GM/DL 6.2-8.1 Albumin 4.2 GM/DL 3.6-5.4 Globulin 2.5 GM/DL 2-4 Albumin/Globulin Ratio 1.7 1-3 Bilirubin Total 0.7 mg/dL 0.4-1.5 Alkaline Phosphatase 56 U/L 30-110 Alt (SGPT) 23 U/L 14-54 Ast (Sgot) 24 U/L 12-42 Laboratory 12/03/2006 [facility] Cytology ----- 73 test finding [phone] <SEE NOTE> Lyme Western 12/03/2006 [facility] B. INDETERMINATE Negative Blot [phone] Burgdorferi Specialty Igg AB - Ib B. Burgdorferi Igm AB - Ib INDETERMINATE Negative p18 ABSENT Absent p23 ABSENT Absent p23IGM PRESENT Absent p28 ABSENT Absent p30 ABSENT Absent p39 ABSENT Absent p39 - Igm ABSENT Absent p41 PRESENT Absent p41 - Igm ABSENT Absent 74 p45 ABSENT Absent p58 ABSENT Absent p66 ABSENT Absent p93 ABSENT Absent 75 CBC With 12/03/2006 [facility] White Blood 5.1 CUMM 4.8-10.8 Electronic Diff [phone] Count Abs Basophils 0.1 0-0.2 Abs Eosinophils 0 0-0.6 Absolute Neutrophil Count 3.1 1.5-7.7 Abs Lymphs 1.3 1.0-4.8 Abs Mononuclear 0.5 0-0.8 Basophil % 1.2 % 0-2 Hematocrit 40 % 35-47 Hemoglobin 13.6 g/dL 12.0-16.0 Eosinophil % 0.6 % 0-6 Gran % 61.6 % 38-83 Lymph % 26.1 % 20-45 Mean Corpuscular HGB Cone 35 g/dL 32-36 Mean Corpuscular Hemoglob 31 pg 27-31 Mean Corpuscular Volume 90 um3 79-97 Mean Platelet Volume 8.0 um3 7.4-10.4 Mononuclear % 10.5 % High 1-9 Platelet Count 345 CUMM 150-450 Red Cell Count 4.38 CUMM 4.2-5.4 Redcell Distribution WDTH 13 % 10.5-15 Comp Metabolic 12/03/2006 [facility] One Over Creatinine 1.11 Panel [phone] Anion Gap 5.0 mmol/L 2-11 76 Albumin/Globulin Ratio 1.3 1-3 Albumin 4.3 GM/DL 3.6-5.4 Alkaline Phosphatase 52 U/L 30-110 Alt (SGPT) 20 U/L 14-54 Ast (Sgot) 21 U/L 12-42 BUN 17 mg/dL 6-24 Calcium 9.3 mg/dL 8.7-10.2 Chloride 102 mmol/L 101-111 Co2 (Carbon Dioxide) 30.0 mmol/L 22-32 Globulin 3.2 GM/DL 2-4 Glucose 78 mg/dL 70-105 Potassium 4.5 mmol/L 3.5-5.0 Sodium 137 mmol/L 135-145 Bilirubin Total 0.7 mg/dL 0.4-1.5 Total Protein 7.5 GM/DL 6.2-8.1 BUN/Creatinine Ratio 18.9 8-20 Creatinine 0.9 mg/dL 0.5-1.4 Radha (Antinuclear 12/03/2006 [facility] Antinuclear AB NEGATIVE Negative Antibodies) [phone] Laboratory test 12/03/2006 [facility] Rheumatoid < 20.0 Less Than finding [phone] Factor IU/mL 20 Laboratory test 12/03/2006 [facility] Erythrocyte 1 MM/HR 0-15 finding [phone] Sed Rate Urine DIP 12/03/2006 In House Lab Leukocytes NEG Neg (607)- - Urine Nitrites NEG Neg Urine pH 5 5-6 Total Protein, Urine NEG Neg Urine Glucose NORM Norm Urine Ketones NEG Neg Urobilinogen NORM Norm Urine Bilirubin NEG Neg Urine Blood NEG Neg Specific [place] N/A Low 1.01-1.02 Comp Metabolic 01/13/2006 [facility] One Over Creatinine 1.42 Panel [phone] Anion Gap 5.0 mmol/L 2-11 77 Albumin/Globulin Ratio 1.7 1-3 Albumin 3.8 GM/DL 3.6-5.4 Alkaline Phosphatase 51 U/L 30-110 Alt (SGPT) 27 U/L 14-54 Ast (Sgot) 25 U/L 12-42 BUN 14 mg/dL 6-24 Calcium 9.1 mg/dL 8.7-10.2 Chloride 103 mmol/L 101-111 Co2 (Carbon Dioxide) 30.0 mmol/L 22-32 Globulin 2.2 GM/DL 2-4 Glucose 66 mg/dL Low 70-105 Potassium 3.9 mmol/L 3.5-5.0 Sodium 138 mmol/L 135-145 Bilirubin Total 0.6 mg/dL 0.4-1.5 Total Protein 6.0 GM/DL Low 6.2-8.1 BUN/Creatinine Ratio 20.0 8-20 Creatinine 0.7 mg/dL 0.5-1.4 CBC With 01/13/2006 [facility] White Blood 5.4 CUMM 4.8-10.8 Electronic Diff [phone] Count Abs Basophils 0.1 0-0.2 Abs Eosinophils 0.1 0-0.6 Absolute Neutrophil Count 3.3 1.5-7.7 Abs Lymphs 1.5 1.0-4.8 Abs Mononuclear 0.4 0-0.8 Basophil % 1.1 % 0-2 Hematocrit 37 % 35-47 Hemoglobin 13.1 g/dL 12.0-16.0 Eosinophil % 1.0 % 0-6 Gran % 62.1 % 38-83 Lymph % 27.7 % 20-45 Mean Corpuscular HGB Cone 35 g/dL 32-36 Mean Corpuscular Hemoglob 31 pg 27-31 Mean Corpuscular Volume 88 um3 79-97 Mean Platelet Volume 8.2 um3 7.4-10.4 Mononuclear % 8.1 % 1-9 Platelet Count 309 CUMM 150-450 Red Cell Count 4.22 CUMM 4.2-5.4 Redcell Distribution WDTH 12 % 10.5-15 Urine DIP 01/13/2006 In House Lab Leukocytes NEG Neg (607)- - Urine Nitrites NEG Neg Urine pH 5 5-6 Total Protein, Urine NL Neg Urine Glucose NL Norm Urine Ketones NL Neg Urobilinogen NL Norm Urine Bilirubin NL Neg Urine Blood NL Neg Specific [place] N/A Low 1.01-1.02 Laboratory test 01/13/2006 [facility] TSH 1.15 MIU/ ML 0.34-5.60 finding [phone] Free Thyroxine 0.83 NG/ML 0.61-1.24 78 CBC With 08/14/2005 [facility] White Blood 4.9 CUMM 4.8-10.8 Electronic Diff [phone] Count Abs Basophils 0.1 0-0.2 Abs Eosinophils 0 0-0.6 Absolute Neutrophil Count 3.0 1.5-7.7 Abs Lymphs 1.3 1.0-4.8 Abs Mononuclear 0.5 0-0.8 Basophil % 1.1 % 0-2 Hematocrit 36 % 35-47 Hemoglobin 12.6 g/dL 12.0-16.0 Eosinophil % 0.8 % 0-6 Gran % 61.0 % 38-83 Lymph % 26.9 % 20-45 Mean Corpuscular HGB Cone 35 g/dL 32-36 Mean Corpuscular Hemoglob 30 pg 27-31 Mean Corpuscular Volume 86 um3 79-97 Mean Platelet Volume 8.4 um3 7.4-10.4 Mononuclear % 10.2 % High 1-9 Platelet Count 358 CUMM 150-450 Red Cell Count 4.23 CUMM 4.2-5.4 Redcell Distribution WDTH 15 % 10.5-15 Laboratory test 08/14/2005 [facility] Ferritin CANCELLED finding [phone] CBC With 05/09/2005 [facility] White Blood 4.2 CUMM Low 4.8-10 Electronic Diff [phone] Count .8 Abs Basophils 0.1 0-0.2 Abs Eosinophils 0 0-0.6 Absolute Neutrophil Count 2.3 1.5-7.7 Abs Lymphs 1.4 1.0-4.8 Abs Mononuclear 0.4 0-0.8 Basophil % 1.7 % 0-2 Hematocrit 31 % Low 35-47 Hemoglobin 10.8 g/dL Low 12.0-16.0 Eosinophil % 1.1 % 0-6 Gran % 54.3 % 38-83 Lymph % 33.0 % 20-45 Mean Corpuscular HGB Cone 35 g/dL 32-36 Mean Corpuscular Hemoglob 30 pg 27-31 Mean Corpuscular Volume 87 um3 79-97 Mean Platelet Volume 7.7 um3 7.4-10.4 Mononuclear % 9.9 % High 1-9 Platelet Count 366 CUMM 150-450 Red Cell Count 3.59 CUMM Low 4.2-5.4 Redcell Distribution WDTH 14 % 10.5-15 Type And 05/09/2005 [facility] Patient O POSITIVE Screen-Preadmission [phone] Blood Type Specimen Discard Date [id number] Antibody Screen NEGATIVE Surgical 03/26/2005 [facility] Surgical Run: 80 Pathology [phone] Pathology 14 <SEE NOTE> Laboratory test 03/15/2005 [facility] TSH 2.37 MIU/ ML 0.34- finding [phone] 5.60 FSH 9.91 MIU/ML 81 Lutenizing Hormone 22.9 MIU/ML 82 Iron & Iron 01/30/2005 [facility] Iron Total 168 g/ dL 28-170 Binding Capacity [phone] Unsaturated Iron Binding 244 g/dL Total Iron Binding Capacity 412 g/dL 250-450 % Iron Saturation 41 % 15-55 CBC With 01/30/2005 [facility] White Blood 5.2 CUMM 4.8-10.8 Electronic Diff [phone] Count Abs Basophils 0.1 0-0.2 Abs Eosinophils 0 0-0.6 Absolute Neutrophil Count 3.3 1.5-7.7 Abs Lymphs 1.3 1.0-4.8 Abs Mononuclear 0.5 0-0.8 Basophil % 1.5 % 0-2 Hematocrit 36 % 35-47 Hemoglobin 12.5 g/dL 12.0-16.0 Eosinophil % 0.2 % 0-6 Gran % 63.9 % 38-83 Lymph % 24.5 % 20-45 Mean Corpuscular HGB Cone 35 g/dL 32-36 Mean Corpuscular Hemoglob 30 pg 27-31 Mean Corpuscular Volume 87 um3 79-97 Mean Platelet Volume 8.6 um3 7.4-10.4 Mononuclear % 9.9 % High 1-9 Platelet Count 325 CUMM 150-450 Red Cell Count 4.19 CUMM Low 4.2-5.4 Redcell Distribution WDTH 15 % 10.5-15 Laboratory test 01/30/2005 [facility] Ferritin 14 NG/ ML 11.0-307 finding [phone] Laboratory test 10/31/2004 [facility] Thin Layer Pap REC'D-SEE finding [phone] W/Reflex To HPV IMAGE For ASCUS Urine DIP 10/31/2004 In House Lab Leukocytes TRACE Neg (607)- - Urine Nitrites NEG Neg Urine pH 5 5-6 Total Protein, Urine NEG Neg Urine Glucose NORM Norm Urine Ketones NEG Neg Urobolinogen NORM Norm Urine Bilirubin NEG Neg Urine Blood NEG Neg Specific [place] NA Low 1.01-1.02 Laboratory test 10/31/2004 [facility] House Lab Hemoglobin 8.3 finding (607)- - Laboratory [place] 08[place]20[place] [facility] [place] BREAST BIOPSY finding (607)- - Xray 08/20/2004 [facility] [place] [facility]reot[facility] SEE ADDENDUM EXPRESS CHECK-IN # [id number] Breast Biopsy CBC With 08/07/2004 [facility] White Blood Count 4.5 CUMM Low 4.8-1 Electronic Diff [phone] 0.8 Abs Basophils 0.1 0-0.2 Abs Eosinophils 0 0-0.6 Abs Grans 2.7 1.5-7.7 Abs Lymphs 1.1 1.0-4.8 Abs Mononuclear 0.5 0-0.8 Basophil % 1.8 % 0-2 Hematocrit 31 % Low 35-47 Hemoglobin 10.0 g/dL Low 12.0-16.0 Eosinophil % 0.9 % 0-6 Gran % 60.7 % 38-83 Lymph % 25.1 % 20-45 Mean Corpuscular HGB Cone 32 g/dL 32-36 Mean Corpuscular Hemoglob 25 pg Low 27-31 Mean Corpuscular Volume 77 um3 Low 79-97 Mean Platelet Volume 8.3 um3 7.4-10.4 Mononuclear % 11.5 % High 1-9 Platelet Count 371 CUMM 150-450 Red Cell Count 4.03 CUMM Low 4.2-5.4 Redcell Distribution WDTH 16 % High 10.5-15 Laboratory test 08/07/2004 [facility] Ferritin < 10 NG/ML Low 11.0-307 finding [phone] Vitamin B12 421 pg/mL 180-914 Folic Acid 13.6 NG/ML 2.2-18.3 TSH 2.11 MIU/ML 0.34-5.60 Lipid Profile 08/07/2004 [facility] Cholesterol/HDL 3.54 1-4.44 (Trig/Chol/HDL) [phone] Ratio AVERAGE Cholesterol 177 mg/dL Less Than 200 83 Triglyceride 62 mg/dL 40-200 High Density Lipoprotein 50 mg/dL 40-60 Low Density Lipoprotein 115 mg/dL High Less Than 100 84 Iron & Iron 08/07/2004 [facility] Iron Total 19 g/ dL Low 28-170 Binding Capacity [phone] Unsaturated Iron Binding 429 g/dL Total Iron Binding Capacity 448 g/dL 250-450 % Iron Saturation 4 % Low 15-55 Urine DIP 07/17/2004 [facility] House Lab Leukocytes NEG Neg (607)- - Urine Nitrites NEG Neg Urine pH 5 5-6 Total Protein, Urine NEG Neg Urine Glucose NORM Norm Urine Ketones NEG Neg Urobolinogen NORM Norm Urine Bilirubin NEG Neg Urine Blood NEG Neg Specific [place] NA Low 1.01-1.02 Laboratory test finding 07/17/2004 [facility] House Lab Hemoglobin 10.4 (607)- - 1 [id number] FASTING 2 Therapeutic target for the treatment of diabetes mellitus patients is <7% HBA1C, and in selective patients <6.0%. Please refer to [place] [employer] Association diabetic care guidelines for further information. 3 [id number] FASTING 4 [id number] FASTING 5 Desirable: <150 Borderline High: 150-199 High: 200-499 Very High: >500 6 Desirable: <200 Borderline High: 200-239 High: >239 7 Low: <40 Desirable: 40-60 High: >60 8 Desirable: <100 Near Optimal: 100-129 Borderline High: 130-159 High: 160-189 Very High: >189 9 Because ethnic data is not always readily available, this report includes an eGFR for both -Americans and non- Americans. The National Kidney Disease Education Program (NKDEP) does not endorse the use of the MDRD equation for patients that are not between the ages of 18 and 70, are , have extremes of body size, muscle mass, or nutritional status, or are non- or non-. According to the National Kidney Foundation, irrespective of diagnosis, the stage of the disease is based on the level of kidney function: Stage Description GFR(mL/min/1.73 m(2)) 1 Kidney damage with normal or decreased GFR 90 2 Kidney damage with mild decrease in GFR 60-89 3 Moderate decrease in GFR 30-59 4 Severe decrease in GFR 15-29 5 Kidney failure <15 (or dialysis) 10 SEE RESULT BELOW Name: ROGER CARUSO : [address]: Nette Arguelles MD Acct: [id number] Unit: [id number] AGE: 57 Location: [facility] Re04/24/17 SEX: F Status: REG REF SPEC: [id number] TAYLOR: 04/24/17-[address] [facility] [address]: Nette Arguelles MD REQ: [id number] RECD: 04/24/17-1250 STATUS: SOUT _ ORDERED: TP IMAGE ANAL, HPV/Thin Prep, HPV 16/18 GENE COMMENTS: [id number] Negative for Intraepithelial lesion or Malignancy A. Ectocervical/Endocervical Specimen Adequacy: Satisfactory of evaluation Transformation zone component cannot be definitely identified due to presence of atrophy or other hormonal changes Patient Information: HPV: High risk HPV RNA testing regardless of pap results. HPV 16/18 Genotype Reflex Actual Specimen Date: 04/24/17 Hysterectomy?: Y Date Time Test Result Flag (u) Normal Range 04/24/17 1039 @ HPV RNA RFLX GE Negative Negative @ @ The high-risk HPV types detected by the assay include: 16, @ 18, 31, 33, 35, 39, 45, 51, 52, 56, 58, 59, 66, and 68. Signed (signature on file) CHARLIE Britt(ASCP) 04/25 1311 This Pap test was evaluated with the assistance of the [employer] Test Imaging System. Due to cytologic findings at the supervisor hand silvering microscope, comprehensive manual rescreening by a Principal Trainer may be required. The Pap Smear is a screening test designed to aid in the detection of premalignant and malignant conditions of the uterine cervix. It is not a diagnostic procedure and should not be used as the sole means of detecting cervical cancer. Both false- positive and false- negative reports do occur. Depending on your risk status, a Pap smear should be obtained and evaluated every 1-3 years. END OF REPORT * ML=Testing performed at [facility] DEPARTMENT OF PATHOLOGY, [address] [place] [address] Gerry Swartz M.D. Director [facility] # [id number] 11 [id number] 12 Because ethnic data is not always readily available, this report includes an eGFR for both -Americans and non- Americans. The National Kidney Disease Education Program (NKDEP) does not endorse the use of the MDRD equation for patients that are not between the ages of 18 and 70, are , have extremes of body size, muscle mass, or nutritional status, or are non- or non-. According to the National Kidney Foundation, irrespective of diagnosis, the stage of the disease is based on the level of kidney function: Stage Description GFR(mL/min/1.73 m(2)) 1 Kidney damage with normal or decreased GFR 90 2 Kidney damage with mild decrease in GFR 60-89 3 Moderate decrease in GFR 30-59 4 Severe decrease in GFR 15-29 5 Kidney failure <15 (or dialysis) 13 [id number] 15 Therapeutic target for the treatment of diabetes Mellitus patients is <7% HBA1C, and in selective patients <6.0%.Please refer to [place] [employer] Diabetic care guidelines for further information. 16 [id number] Because ethnic data is not always readily available, this report includes an eGFR for both -Americans and non- Americans. The National Kidney Disease Education Program (NKDEP) does not endorse the use of the MDRD equation for patients that are not between the ages of 18 and 70, are , have extremes of body size, muscle mass, or nutritional status, or are non- or non-. According to the [employer], irrespective of diagnosis, the stage of the disease is based on the level of kidney function: Stage Description GFR(mL/min/1.73 m(2)) 1 Kidney damage with normal or decreased GFR 90 2 Kidney damage with mild decrease in GFR 60-89 3 Moderate decrease in GFR 30-59 4 Severe decrease in GFR 15-29 5 Kidney failure <15 (or dialysis) 18 Desirable <150 Borderline high 150-199 High 200-499 Very High >500 19 Desirable <200 Borderline high 200-239 High >239 20 Low <40 Desirable: 40-60 High: >60 21 Desirable: <100 mg/dL Near Optimal: 100-129 mg/dL Borderline High: 130-159 mg/dL High: 160-189 mg/dL Very High: >189 mg/dL 22 Desirable <150 Borderline high 150-199 High 200-499 Very High >500 23 Desirable <200 Borderline high 200-239 High >239 24 Low <40 Desirable: 40-60 High: >60 25 Desirable: <100 mg/dL Near Optimal: 100-129 mg/dL Borderline High: 130-159 mg/dL High: 160-189 mg/dL Very High: >189 mg/dL 26 Because ethnic data is not always readily available, this report includes an eGFR for both -Americans and non- Americans. The National Kidney Disease Education Program (NKDEP) does not endorse the use of the MDRD equation for patients that are not between the ages of 18 and 70, are , have extremes of body size, muscle mass, or nutritional status, or are non- or non-. According to the National Kidney Foundation, irrespective of diagnosis, the stage of the disease is based on the level of kidney function: Stage Description GFR(mL/min/1.73 m(2)) 1 Kidney damage with normal or decreased GFR 90 2 Kidney damage with mild decrease in GFR 60-89 3 Moderate decrease in GFR 30-59 4 Severe decrease in GFR 15-29 5 Kidney failure <15 (or dialysis) 27 Therapeutic target for the treatment of diabetes Mellitus patients is <7% HBA1C, and in selective patients <6.0%.Please refer to [place] [employer] Diabetic care guidelines for further information. 28 FAX COPY LABS TO WALESKA BEJARANO NP [phone] 29 Potassium reference range changed effective 01/02/14 30 Because ethnic data is not always readily available, this report includes an eGFR for both -Americans and non- Americans. The National Kidney Disease Education Program (NKDEP) does not endorse the use of the MDRD equation for patients that are not between the ages of 18 and 70, are , have extremes of body size, muscle mass, or nutritional status, or are non- or non-. According to the National Kidney Foundation, irrespective of diagnosis, the stage of the disease is based on the level of kidney function: Stage Description GFR(mL/min/1.73 m(2)) 1 Kidney damage with normal or decreased GFR 90 2 Kidney damage with mild decrease in GFR 60-89 3 Moderate decrease in GFR 30-59 4 Severe decrease in GFR 15-29 5 Kidney failure <15 (or dialysis) 31 FAX COPY LABS TO WALESKA BEJARANO NP [phone] 32 FAX COPY LABS TO WALESKA BEJARANO NP [phone] 33 Normal Range 180 to 914 Indeterminate Range 145 to 180 Deficient Range <145 34 REFERENCE VALUE 25-HYDROXY D TOTAL (D2+D3) Optimum levels in the healthy population are 20-50, patients with bone disease may benefit from higher levels within this range. Test Performed by: [address] [address] Timekeeper: Mark Pritchard M.D. 35 Therapeutic target for the treatment of diabetes Mellitus patients is <7% HBA1C, and in selective patients <6.0%.Please refer to [place] [employer] Diabetic care guidelines for further information. 36 RUN DATE: 11/09/12 [facility] LAB LIVE PAGE 1 RUN TIME: [address] [place] [address] Specimen Inquiry Name: ROGER CARUSO : [address]: Nette Arguelles MD Acct: [id number] Unit: [id number] AGE: 52 Location: [facility] Re10/21/12 SEX: F Status: REG REF SPEC: [id number] TAYLOR: 10/21/12-[address]: Nette Arguelles MD REQ: [id number] RECD: 10/21/12 STATUS: COMP _ SOURCE: [facility] SPDESC: ORDERED: Fungal Smear, Fungal - Other QUERIES: Medent Number [id number] Procedure Result Verified Site Fungal Smear Final 10/22/12- 1012 ML Fungal Findings Negative Preparation By Direct Smear Fungal Cult - Other Sources Final 11/09/12- 1359 ML Fungal Culture No Growth of Mycotic Organisms 3 weeks END OF REPORT * ML=Testing performed at Main Lab DEPARTMENT OF PATHOLOGY, [facility] [address] [place], [place] [address] Gerry Swartz M.D. Director [facility] Permit #[id number] RUN DATE: 10/22/12 [facility] LAB LIVE PAGE 1 RUN TIME: 101 [facility] [address] [place], [place] [address] Specimen Inquiry Name: ROGER CARUSO : [address]: Nette Arguelles MD Acct: [id number] Unit: [id number] AGE: 52 Location: [facility] Re10/21/12 SEX: F Status: REG REF SPEC: [id number] TAYLOR: 10/21/12-[address] [facility] [address]: Nette Arguelles MD REQ: [id number] RECD: 10/21/12 STATUS: RES _ SOURCE: [facility] SPDESC: ORDERED: Fungal Smear, Fungal - Other QUERIES: Medent Number [id number] Procedure Result Verified Site Fungal Smear Final 10/22/12- 1012 ML Fungal Findings Negative Preparation By Direct Smear Fungal Cult - Other Sources PENDING END OF REPORT * ML=Testing performed at Main Lab DEPARTMENT OF PATHOLOGY, [facility] [address] [place], [place] [address] Gerry Swartz M.D. Director [facility] Permit #[id number] RUN DATE: 10/26/12 [facility] LAB LIVE PAGE 1 RUN TIME: 1224 [facility] [address] [place], [place] [address] Specimen Inquiry Name: ROGER CARUSO : [address]: Nette Arguelles MD Acct: [id number] Unit: [id number] AGE: 52 Location: [facility] Re10/21/12 SEX: F Status: REG REF SPEC: [id number] TAYLOR: 10/21/12-[address]: Nette Arguelles MD REQ: [id number] RECD: 10/21/12168 STATUS: SOUT _ ORDERED: PASS STAIN, GMSS, LEVEL IV FINAL DIAGNOSIS Skin, right foot, biopsy: Interface dermatitis (see comment). COMMENT: The histologic differential diagnosis includes lichen planus and other lichenoid dermatities. Diagnostic evidence of fungal dermatitis is not identified. PRE-OPERATIVE DIAGNOSIS Rash GROSS DESCRIPTION The specimen is received in formalin labeled Roger Caruso, Right Foot Rash, and consists of a single, aguilera, soft tissue fragment measuring 0.2 x 0.2 x 0.1 cm. Submitted entirely, one cassette. MICROSCOPIC DESCRIPTION Sections show skin excised to include deep reticular dermis. The rete are effaced by a dermal inflammatory infiltrate composed predominantly of lymphocytes. A resulting subepidermal bullous cleft is present with lymphocytes at the dermal-epidermal junction. Occasional necrotic keratinocytes are present. There is lymphocyte exocytosis into the epidermis without prominent associated spongiosis. PAS and GMS stains performed with appropriate controls are negative for unequivocal hyphal or pseudohyphal fungal CONTINUED ON NEXT PAGE * ML=Testing performed at [facility] DEPARTMENT OF PATHOLOGY, [address] [place] [address] Gerry Swartz M.D. Director [place] Permit #[id number] RUN DATE: 10/26/12 [facility] LAB LIVE PAGE 2 RUN TIME: [address] [place] [address] Specimen Inquiry Patient: ROGER CARUSO [id number] (Continued) MICROSCOPIC DESCRIPTION (Continued) MICROSCOPIC DESCRIPTION (Continued) organisms. Signed (signature on file) Jessica Villafana MD 1224 END OF REPORT * ML=Testing performed at Main Lab DEPARTMENT OF PATHOLOGY, [address] [place] [address] Gerry Swartz M.D. Director [facility] Permit #[id number] RESULT: Ectocervical/Endocervical 40 For types 16, 18, 31, 33, 35, 39, 45, 51, 52, 56, 58, 59 and 68. Test Performed by: [address] [address] Timekeeper: Georgi Elena III, M.D. 41 Because ethnic data is not always readily available, this report includes an eGFR for both -Americans and non- Americans. The National Kidney Disease Education Program (NKDEP) does not endorse the use of the MDRD equation for patients that are not between the ages of 18 and 70, are , have extremes of body size, muscle mass, or nutritional status, or are non- or non-. According to the National Kidney Foundation, irrespective of diagnosis, the stage of the disease is based on the level of kidney function: Stage Description GFR(mL/min/1.73 m(2)) 1 Kidney damage with normal or decreased GFR 90 2 Kidney damage with mild decrease in GFR 60-89 3 Moderate decrease in GFR 30-59 4 Severe decrease in GFR 15-29 5 Kidney failure <15 (or dialysis) 42 HDL Interpretation: Undesirable: High Risk: Less than 40 mg/dL Desirable: Low Risk: Greater than 60 mg/dL 43 LDL Interpretation: Low Risk Optimal Level: LDL Less than 100 mg/dL Near or Above Optimal: LDL 100-129 mg/dL Borderline High Risk: LDL 130-159 mg/dL High Risk: LDL 160-189 mg/dL Very High Risk: LDL Greater than 189 mg/dL 44 RUN DATE: 07/23/12 [facility] LAB LIVE PAGE 1 RUN TIME: 3012 [address] [place], [place] [address] Specimen Inquiry Name: ROGER CARUSO : [address]: Herlinda White NP Acct: [id number] Unit: [id number] AGE: 52 Location: [facility] Re07/22/12 SEX: F Status: REG REF SPEC: [id number] TAYLOR: 07/22/12-[address]: Herlinda White NP REQ: [id number] RECD: 07/22/12-3 STATUS: SOUT _ ORDERED: IMAGE ANALYSIS, HPV / Thin Prep FINAL DIAGNOSIS Negative for Intraepithelial lesion or Malignancy COMMENTS: Specimen sent to [facility] in [place], [place] on 07/23/12 by [id number] at 1048. Results will be reported separately. A. Ectocervical/Endocervical Specimen Adequacy: Satisfactory of evaluation Transformation zone component cannot be definitely identified due to presence of atrophy or other hormonal changes Patient Information: HPV: High risk HPV DNA testing regardless of pap results. Actual Specimen Date: 07/22/12 LMP If Unknown: 2004 Date of Last Specimen: 11/27/09 Hysterectomy?: Y Other Pertinent History: partial hysterectomy Signed (signature on file) CHARLIE Patel (ASCP) 07/23/12 1245 This Pap test was evaluated with the assistance of the ThinPrep Test Imaging System. Due to cytologic findings at the supervisor hand silvering microscope, comprehensive manual rescreening by a Principal Trainer may be required. The Pap Smear is a screening test designed to aid in the detection of premalignant and malignant conditions of the uterine cervix. It is not a diagnostic procedure and should not be used as the sole means of detecting cervical cancer. Both false- positive and false- negative reports do occur. Depending on your risk status, a Pap smear shoudl be obtained and evaluated every 1-3 years. END OF REPORT * ML=Testing performed at Main Lab DEPARTMENT OF PATHOLOGY, [address] [place] [address] Gerry Swartz M.D. Director [facility] Permit #[id number] 45 NORMAL RANGE MALES 1 - 20 NORMALLY MENSTRUATING FEMALES - Follicular Phase 3 - 9 - Mid-Cycle Peak 4 - 23 - Luteal Phase 1 - 6 POSTMENOPAUSAL FEMALES 16 - 114 . 46 -- REFERENCE VALUE -- 25-HYDROXY D TOTAL (D2+D3) Optimum levels in the normal population are 25-80 Test Performed by: [facility] Dpt of Lab Med and Pathology [address] [place] [address] Timekeeper: Georgi Elena III, M.D. 47 Anion gap measurement may be of limited value in the presence of any alkalosis, especially in a combined acid base disorder. . 48 A metabolite of Naproxen, O-desmethylnaproxen, has been shown to interfere with the [place]-Benton method for measuring total bilirubin. Samples from patients who have taken Naproxen have shown spurious elevation in total bilirubin levels. 49 Because ethnic data is not always readily available, this report includes an eGFR for both -Americans and non- Americans. The National Kidney Disease Education Program (NKDEP) does not endorse the use of the MDRD equation for patients that are not between the ages of 18 and 70, are , have extremes of body size, muscle mass, or nutritional status, or are non- or non-. According to the National Kidney Foundation, irrespective of diagnosis, the stage of the disease is based on the level of kidney function: Stage Description GFR(mL/min/1.73 m(2)) 1 Kidney damage with normal or decreased GFR 90 2 Kidney damage with mild decrease in GFR 60-89 3 Moderate decrease in GFR 30-59 4 Severe decrease in GFR 15-29 5 Kidney failure <15 (or dialysis) 50 Test Performed by: [facility] Dpt of Lab Med and Pathology [address] [place] [address] Timekeeper: Georgi Elena III, M.D. 51 -- REFERENCE VALUE -- <20.0 (Negative) Test Performed by: [facility] Dpt of Lab Med and Pathology [address] [place] [address] Timekeeper: Georgi Elena III, M.D. 52 Specific serologic response to B. burgdorferi infection is not detected, but cannot rule out early infection during which low or undetectable antibody levels to B. burgdorferi may be present. If clinically indicated, a new serum specimen should be submitted in 7-14 days. CDC criteria require >=5 bands for IgG or >=2 bands for IgM for the Western blot to be considered positive. Bands (e.g.,p41) may be detected in patients without Lyme disease, and patterns not meeting the CDC criteria should be interpreted with caution. Western blot should be ordered only on specimens that are positive or equivocal by a FDA-licensed Lyme disease antibody screening test (e.g., EIA). Test performed by Immunoblot. Test Performed by: [facility] Dpt of Lab Med and Pathology [address] [place] [address] Timekeeper: Georgi Elena III, M.D. 53 CHOLESTEROL INTERPRETATION: Desirable: Less than 200 MG/DL Borderline-High Risk: 200-239 MG/DL High-Risk: 240 MG/DL and over 54 HDL INTERPRETATION: Undesirable: High Risk: Less than 40 MG/DL Desirable: Low Risk: Greater than 60 MG/DL 55 LDL INTERPRETATION: Low Risk Optimal Level: LDL Less than 100 MG/DL Near or Above Optimal: LDL 100-129 MG/DL Borderline High Risk: LDL 130-159 MG/DL High Risk: LDL 160-189 MG/DL Very High Risk: LDL Greater than 189 MG/DL 56 ---- RUN DATE: 11/28/09 [facility] NMI LIVE PAGE 1 RUN TIME: 1406 Specimen Inquiry RUN USER: INTERFACE -- Name: ROGER CARUSO Status: REG REF Re11/27/09 Age/Sex: 49/F Unit#: [id number] Location: [facility] : 60 -- Specimen: [id number] SOUT Spec Date: 11/27/[address]: Nette saucedo MD Spec Type: CYTOLOGY Received: 11/28/09-899 Copies to: SOURCE ECTOCERVICAL/ENDOCERVICAL Thin Prep with Reflex HPV Test PATIENT INFORMATION ACTUAL COLLECTION DATE: 11/27/09 PATIENT HISTORY: Last menstrual period not given ADEQUACY OF SPECIMEN Satisfactory for evaluation * Transformation zone component identified * DIAGNOSIS NEGATIVE FOR INTRAEPITHELIAL LESION OR MALIGNANCY * This Pap test was evaluated with the assistance of the TweetflowPrep Pap Test Imaging System. The Pap Smear is a screening test designed to aid in the detection of premalign ant and malignant conditions of the uterine cervix. It is not a diagnostic procedure a nd should not be used as the sole means of detecting cervical cancer. Both false- positiv e and false-negative reports do occur. Depending on your risk status, a Pap smear sarah uld be obtained and evaluated every one to three years. Initial evaluation performed by Laura GOODWIN([facility]) 11/28/09 Final Interpretation electronically signed by: Laura GOODWIN([facility]) 11/28/09 1405 -- -- DEPARTMENT OF PATHOLOGY, [address] [place] [address] [facility] Permit #[id number] Gerry Swartz M.D. Director Sharyn Moreau M.D. Pharmacy Sales Assistant Dir vivienne -- 57 Test Performed by: [facility] Dpt of Lab Med and Pathology [address] [place] [address] Timekeeper: Georgi Elena III, M.D. 58 Anion gap measurement may be of limited value in the presence of any alkalosis, especially in a combined acid base disorder. . 59 Note change in reference range as of 10/22/07. The change was based on recommendations from the [place] [employer]. 60 Please note change in reference range effective 07 . 61 A metabolite of Naproxen, O-desmethylnaproxen, has been shown to interfere with the Jendrassik-Benton method for measuring total bilirubin. Samples from patients who have taken Naproxen have shown spurious elevation in total bilirubin levels. 62 Because ethnic data is not always readily available, this report includes an eGFR for both -Americans and non- Americans. The National Kidney Disease Education Program (NKDEP) does not endorse the use of the MDRD equation for patients that are not between the ages of 18 and 70, are , have extremes of body size, muscle mass, or nutritional status, or are non- or non-. According to the National Kidney Foundation, irrespective of diagnosis, the stage of the disease is based on the level of kidney function: Stage Description GFR(mL/min/1.73 m(2)) 1 Kidney damage with normal or decreased GFR 90 2 Kidney damage with mild decrease in GFR 60-89 3 Moderate decrease in GFR 30-59 4 Severe decrease in GFR 15-29 5 Kidney failure <15 (or dialysis) 63 PLEASE NOTE NEW REFERENCE RANGES. 64 ---- RUN DATE: 08/04/08 [facility] NMI LIVE PAGE 1 RUN TIME: 1231 Specimen Inquiry RUN USER: INTERFACE -- Name: ROGER CARUSO Status: REG REF Re08/03/08 Age/Sex: 48/F Unit#: [id number] Location: [facility]. : 60 -- Specimen: [id number] SOUT Spec Date: 08/03/[address]: Nette saucedo MD Spec Type: CYTOLOGY Received: 08/04/08 Copies to: SOURCE ECTOCERVICAL/ENDOCERVICAL Thin Prep with Reflex HPV Test PATIENT INFORMATION ACTUAL COLLECTION DATE: 08/03/08 PATIENT HISTORY: No history given. ADEQUACY OF SPECIMEN Satisfactory for evaluation * Transformation zone component identified * DIAGNOSIS NEGATIVE FOR INTRAEPITHELIAL LESION OR MALIGNANCY * This Pap test was evaluated with the assistance of the ThinPrep Pap Test Imaging System. The Pap Smear is a screening test designed to aid in the detection of premalign ant and malignant conditions of the uterine cervix. It is not a diagnostic procedure a nd should not be used as the sole means of detecting cervical cancer. Both false- positiv e and false-negative reports do occur. Depending on your risk status, a Pap smear sarah uld be obtained and evaluated every one to three years. Final Interpretation electronically signed by: Miguel Ángel BRANTLEY([facility]) 08/04/08 123 1 -- -- DEPARTMENT OF PATHOLOGY, [address] [place] [address] [facility] Permit #[id number] Gerry Swartz M.D. Director Sharyn Moreau M.D. Pharmacy Sales Assistant Dir vivienne -- 65 -- REFERENCE VALUE -- 25-HYDROXY D TOTAL (D2+D3) Optimum levels in the normal population are 25-80 Test Performed by: [facility] Dpt of Lab Med and Pathology [address] [place] [address] Timekeeper: Georgi Elena III, M.D. 66 IgG band(s) ([place]): P41 67 IgM band(s) ([place]): P23 68 Specific serologic response to B. burgdorferi is not detected, but cannot rule out early infection during which low or undetectable antibody levels to B. burgdorferi may be present. If clinically indicated, a new serum specimen should be submitted in 7-14 days. Western blot should only be ordered on specimens that are positive or equivocal by a FDA-licensed Lyme disease antibody screening test (e.g., EIA). CDC criteria require >=5 bands for IgG or >=2 bands for IgM for the Western blot to be considered positive. Test Performed by: [facility] Dpt of Lab Med and Pathology [address] [place] [address] Timekeeper: Georgi Elena III, M.D. 69 New Reference Range and Interpretation effective 12/04/01 TnI (ng/ml) INTERPRETATION <0.06 ng/ml NOT SUPPORTIVE OF DIAGNOSIS OF [place] 0.06 - 0.50 ng/ml INDETERMINATE: SUGGEST SERIAL STUDIES IF CLINICALLY INDICATED. > 0.5 ng/ml CONSISTENT WITH DIAGNOSIS OF [place] . 70 Anion gap measurement may be of limited value in the presence of any alkalosis, especially in a combined acid base disorder. . 71 Note change in reference range as of 10/22/07. The change was based on recommendations from the [place] [employer]. 72 Please note change in reference range effective 07 . 73 ---- RUN DATE: 12/09/06 [facility] NMI LIVE PAGE 1 RUN TIME: 1033 Specimen Inquiry RUN USER: INTERFACE [id number] ROGER CARUSO 46/F <REG REF 12/03> ([id number]) KOTA Arguelles MD, Parker navarro -- Specimen: [id number] SOUT Spec Date: 12/03/[address]: Nette saucedo MD Spec Type: CYTOLOGY Received: 12/04/06-0666 Copies to: SOURCE ECTOCERVICAL/ENDOCERVICAL Thin Prep with Reflex HPV Test PATIENT INFORMATION ACTUAL COLLECTION DATE: 12/03/06 HYSTERECTOMY? Yes PATIENT HISTORY: Prior ADEQUACY OF SPECIMEN Satisfactory for evaluation * Transformation zone component not identified * DIAGNOSIS NEGATIVE FOR INTRAEPITHELIAL LESION OR MALIGNANCY * This Pap test was evaluated with the assistance of the TweetflowPrep Pap Test Imaging System. The Pap Smear is a screening test designed to aid in the detection of premalign ant and malignant conditions of the uterine cervix. It is not a diagnostic procedure a nd should not be used as the sole means of detecting cervical cancer. Both false- positive and false-negative reports do occur. Depending on your risk status, a Pap smear sarah uld be obtained and evaluated every one to three years. Final Interpretation electronically signed by: Miguel Ángel BRANTLEY([facility]) 12/09/06 103 3 -- -- DEPARTMENT OF PATHOLOGY, [address] [place] [address] [facility] Permit #[id number] Gerry Swartz M.D. Director of Laboratories Vitaliy Romero II, M.D . Pathologist -- 74 INTERPRETIVE CRITERIA: POSITIVE: LYME IGM IB IS CONSIDERED POSITIVE BY THE [facility] DEPT. OF HEALTH IF ANY TWO OF THE FOLLOWING BANDS ARE PRESENT: 23, 39 OR 41 KD. INDETERMINATE: [facility] DEPT. OF HEALTH CONSIDERS THE TEST RESULTS INDETERMINATE IF ANY ONE BAND IS PRESENT. NEGATIVE: NO BANDS PRESENT. TEST PERFORMED BY: [employer]. [address] [place] [phone] 75 INTERPRETIVE CRITERIA: POSITIVE: LYME IGG IB IS CONSIDERED POSITIVE BY THE [facility] DEPT. OF HEALTH IF ANY FIVE OF THE FOLLOWING BANDS ARE PRESENT: 18, 23, 28, 30, 39, 41, 45, 58, 66 OR 93 KD INDETERMINATE: [facility] DEPT. OF HEALTH CONSIDERS THE TEST RESULTS INDETERMINATE IF ONE TO FOUR BANDS ARE PRESENT. NEGATIVE: NO BANDS PRESENT. 76 Anion gap measurement may be of limited value in the presence of any alkalosis, especially in a combined acid base disorder. . 77 Anion gap measurement may be of limited value in the presence of any alkalosis, especially in a combined acid base disorder. . 78 PLEASE NOTE NEW REFERENCE RANGES. 79 PREADMISSION TESTING SAMPLES FOR BLOOD BANK WILL BE HELD FOR 14 DAYS FROM THE DATE OF COLLECTION *IF* THE FOLLOWING CRITERIA ARE MET: 1) THE PATIENT HAS *NOT* BEEN IN THE LAST 3 MONTHS. 2) THE PATIENT HAS *NOT* BEEN TRANSFUSED IN THE LAST 3 MONTHS. PREADMISSION TESTING SAMPLES WILL *NOT* BE HELD FOR 14 DAYS FROM PATIENTS WHO IN THE LAST 3 MONTHS: 1) HAVE BEEN 2) HAVE BEEN TRANSFUSED THESE PATIENTS *MUST* BE COLLECTED WITHIN 3 DAYS OF THE SURGERY DATE. 80 Run: 03/27/05 1453 LIS Specimen Inquiry Run User: INTERFACE -- Name: ROGER CARUSO Age/Sex: 45/F Location: [facility]#: [id number] Unit#: [id number] Status: [facility] REF Room/Bed: Re03/25/05 Disch: Att Dr: Elliot Amato MD -- Spec #: [id number] Recd: 03/26/05141 Status: [facility] #: [id number] SpType: SURGICAL P Sub Dr: Elliot Amato MD. DIAGNOSIS Endometrium, biopsy - A) Abundant benign secretory phase endometrium. B) Normal gland to stroma ratio. C) No malignancy. GROSS DESCRIPTION The specimen is received in formalin labelled "Roger Caruso, Endometrial Bx" and consists of a 0.6 x 0.4 x 0.2 cm. aggregate of hemorrhagic dark purple-red tissue. Filtered, total, one block. HISTORY PRE-OP DIAGNOSIS: Menometrorrhagia CLINICAL INFORMATION: Patient with enlarged uterus=14 cm. and heavy me SPECIMEN ENDOMETRIAL BIOPSY -- Signed Electronically signed VITALIY ROMERO 03/27/05 -- END OF REPORT 81 NORMAL RANGE MALES 1 - 20 NORMALLY MENSTRUATING FEMALES - Follicular Phase 3 - 9 - Mid-Cycle Peak 4 - 23 - Luteal Phase 1 - 6 POSTMENOPAUSAL FEMALES 16 - 114 . 82 NORMAL RANGE MALES 2 - 12 NORMALLY MENSTRUATING FEMALES - Follicular Phase 1 - 18 - Mid-Cycle Peak 24 - 105 - Luteal Phase 0.6 - 20 POSTMENOPAUSAL FEMALES 15 - 62 . 83 Classification: Desirable . 84 CALCULATED LDL APPROXIMATES THE VALUE OF A DIRECT LDL MEASUREMENT. Classification: Near or above optimal . Procedures Date Code Description Status 09/26/2016 28148 EKG, at Least 12 Leads w/Interpretation and Report Completed 05/20/2016 62030 EKG, at Least 12 Leads w/Interpretation and Report Completed 04/03/2014 [id number] Colonoscopy Completed 10/21/2012 61766 Excision Lesion 0.6 To 1.0 CM Completed 03/18/2012 88317 EKG, at Least 12 Leads w/Interpretation and Report Completed 05/11/2008 64491 EKG, at Least 12 Leads w/Interpretation and Report Completed Encounters Type Date Location Provider Dx Diagnosis Office Visit 03/14/2018 Main Office Toby Ledbetter R07.81 Pleurodynia 11:00a Office Visit 04/24/2017 Main Office Nette Allan Z00.00 Encntr for general 9:30a Lester Arguelles adult medical exam w/o abnormal findings I10 Essential (primary) hypertension F41.9 Anxiety disorder, unspecified G47.30 Sleep apnea, unspecified E78.00 Pure hypercholesterolemia, unspecified Z80.3 Family history of malignant neoplasm of breast E07.89 Other specified disorders of thyroid Z83.3 Family history of diabetes mellitus E55.9 Vitamin D deficiency, unspecified R07.89 Other chest pain H93.12 Tinnitus, left ear Office Visit 01/30/2017 11:15a Main Office Nette Ruby ( primary) Lester Arguelles hypertension Office Visit 12/05/2016 12:30p Main Office Nette Ruby ( primary) Lester Arguelles hypertension G47.30 Sleep apnea, unspecified Z11.59 Encounter for screening for other viral diseases F41.9 Anxiety disorder, unspecified E55.9 Vitamin D deficiency, unspecified Z23 Encounter for immunization Office Visit 09/26/2016 11:00a Main Office Herlinda White, R07.9 Chest pain, 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 unspecified Office Visit 07/24/2016 2:30p Main Office Nette Ruby ( primary) Lester Arguelles hypertension F41.9 Anxiety disorder, unspecified M79.671 Pain in right foot G47.30 Sleep apnea, unspecified Office Visit 05/20/2016 11:00a Main Office Nette Singh Essential ( primary) Lester Arguelles hypertension F41.9 Anxiety disorder, unspecified M79.671 Pain in right foot G47.30 Sleep apnea, unspecified Office Visit 03/12/2016 1:00p Main Office Nette Allan R03.0 Elevated Lester Arguelles blood-pressure reading, w/o diagnosis of htn E78.00 Pure hypercholesterolemia, unspecified G47.30 Sleep apnea, unspecified E55.9 Vitamin D deficiency, unspecified F33.1 Major depressive disorder, recurrent, moderate Z80.3 Family history of malignant neoplasm of breast Z23 Encounter for immunization Office Visit 02/05/2016 10:15a Main Office Nette Allan Z00.01 Encounter for Lester Arguelles general adult medical exam w abnormal findings G47.30 Sleep apnea, unspecified F33.1 Major depressive disorder, recurrent, moderate E55.9 Vitamin D deficiency, unspecified Z80.3 Family history of malignant neoplasm of breast L43.9 Lichen planus, unspecified E78.00 Pure hypercholesterolemia, unspecified E07.89 Other specified disorders of thyroid Z83.49 Family history of endo, nutritional and metabolic diseases R10.32 Left lower quadrant pain R03.0 Elevated blood-pressure reading, w/o diagnosis of htn Office Visit 01/31/2015 1:00p Main Office Nette Allan Z00.01 Encounter for Lester Arguelles general adult medical exam w abnormal findings G47.30 Sleep apnea, unspecified L43.9 Lichen planus, unspecified E78.0 Pure hypercholesterolemia F33.1 Major depressive disorder, recurrent, moderate J31.0 Chronic rhinitis Z80.3 Family history of malignant neoplasm of breast E55.9 Vitamin D deficiency, unspecified Z83.3 Family history of diabetes mellitus E07.89 Other specified disorders of thyroid Z12.11 Encounter for screening for malignant neoplasm of colon Office Visit 05/27/2014 3:00p Main Office BOB Gunn-Cristina 697.0 Lichen Planus 473.9 Sinusitis Chronic Unspec Office Visit 01/26/2014 10:15a Main Office Nette Allan V70.0 Examination General Lester Arguelles Medical Routine AT Health Care Facility 272.0 Hypercholesterolemia Pure 780.57 Unspecified Sleep Apnea 729.1 Myalgia & Myositis Unspec V16.3 History Family Malignant Neoplasm Breast V18.19 Family HX Of Other Endocrine And Metabolic Disease 477.9 Rhinitis Allergic Cause Unspec 296.32 Depressive Disorder Major Recurrent Moderate V76.51 Special Screening For Malignant Neoplasms Colon Office Visit 09/17/2013 3:00p Main Office Herlinda White, 848.9 Sprains & Strains 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 V70.0 Examination General Medical Routine AT Health Care Facility Office Visit 06/24/2012 11:45a Main Office Herlinda White, 873.60 Open Wound Mouth 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 Unspec Site W/O Complication Office Visit 03/18/2012 11:30a Main Office Herlinda White, 530.81 Esophageal Reflux 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 Office Visit 07/18/2011 9:30a Main Office Nette Allan V72.31 Routine Financial Cost Analyst Lester Arguelles Examination 719.49 Pain Joint Multiple Sites 272.0 Hypercholesterolemia Pure 530.81 Esophageal Reflux 627.2 Menopausal Or Female Climacteric State, Symptomatic 780.57 Unspecified Sleep Apnea 780.79 Malaise And Fatigue Other 238.2 Neoplasm Uncertain Behavior Skin 611.72 Lump Or Mass Breast Office Visit 05/29/2011 11:45a Main Office Nette Allan 719.49 Pain Joint Lester Arguelles Multiple Sites Office Visit 12/18/2010 9:15a Main Office Herlinda White, 724.5 Backache Unspec 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 Office Visit 09/19/2010 2:45p Main Office Nette Allan 794.5 Thyroid Study Lester Arguelles Abnormal 789.00 Pain Abdominal Unspec Site 724.5 Backache Unspec 719.42 Pain Joint Upper Arm 530.81 Esophageal Reflux Office Visit 11/27/2009 10:15a Main Office Nette Allan V72.31 Routine Financial Cost Analyst Lester Arguelles Examination 794.5 Thyroid Study Abnormal 272.0 Hypercholesterolemia Pure 054.9 Herpes Simplex W/O Complication 530.81 Esophageal Reflux V76.51 Special Screening For Malignant Neoplasms Colon V04.81 Need For Prophylactic Vaccination & Inoculation/Influenza Office Visit 06/14/2009 11:00a Main Office Nette Allan 789.06 Pain Abdominal Lester Arguelles Epigastric 783.1 Weight Gain Abnormal 780.79 Malaise And Fatigue Other Office Visit 03/13/2009 11:15a Main Office Nette Arguelles, 848.3 Sprains & Strains M.DMarciano Ribs 786.09 Dyspnea & Respiratory Abnormalities Other Office Visit 02/13/2009 4:00p Main Office Jesica Beltrán 848.3 Sprains & Strains Storm, 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 Ribs Office Visit 08/03/2008 10:15a Main Office Nette Allan V72.31 Routine Financial Cost Analyst Lester Arguelles Examination 796.2 Blood Pressure Reading Elevated W/O Hypertension 443.0 Raynauds Syndrome 729.1 Myalgia & Myositis Unspec 719.49 Pain Joint Multiple Sites Office Visit 05/11/2008 12:30p Main Office Ines Blake 789.9 Abdomen & Pelvis Lester Saldaña Symptoms Other 786.51 Pain Precordial 401.9 Hypertension Unspec Office Visit 05/12/2007 4:15p Main Office Nette Allan 719.49 Pain Joint Lester Arguelles Multiple Sites 443.0 Raynauds Syndrome 796.2 Blood Pressure Reading Elevated W/O Hypertension Office Visit 12/03/2006 9:30a Main Office Nette Allan V72.31 Routine Financial Cost Analyst Lester Arguelles Examination 311 Depressive Disorder Not Elsewhere Spec 719.49 Pain Joint Multiple Sites 729.1 Myalgia & Myositis Unspec V06.8 Combination Diseases Other Vaccination & Inoculation Office Visit 01/13/2006 11:30a Main Office Nette Arguelles, 724.5 Backache Unspec M.D. 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 Office Visit 08/14/2005 11:15a Main Office Nette Allan 285.9 Anemia Unspec Lester Arguelles 564.00 Constipation Unspecified Office Visit 01/30/2005 11:15a Main Office Nette Allan 626.2 Menstruation Blane MMarcianoDMarciano Excessive Or Frequent 280.9 Iron Deficiency Anemia Unspec 780.4 Dizziness & Giddiness 611.71 Mastodynia Office Visit 10/31/2004 9:00a Main Office Nette Allan V72.31 Routine Financial Cost Analyst Lester Arguelles Examination 280.9 Iron Deficiency Anemia Unspec 729.1 Myalgia & Myositis Unspec 272.0 Hypercholesterolemia Pure 626.2 Menstruation Excessive Or Frequent Office Visit 10/13/2004 9:30a Main Office Ines Blake 054.9 Herpes Simplex W/O Lester Saldaña Complication Office Visit 07/17/2004 3:30p Main Office Nette Allan 729.1 Myalgia & Myositis Blane MMarcianoDMarciano Unspec 280.9 Iron Deficiency Anemia Unspec 272.0 Hypercholesterolemia Pure 786.59 Pain Chest Other 786.51 Pain Precordial Plan of Treatment 04/29/2018 - Nette Arguelles M.D.Z00.00 Encounter for general adult medical examination without abnoComments:HEALTH MAINTENANCE REMINDERS DISCUSSED. ENCOURAGED WORK ON HEALTHY EATING, CUT DOWN ON ETOH TO HALFOR LESS, EXERCISE. PT WILL BE STARTING TO BE MORE ACTIVE THIS NEXT MONTH HER WORK AT [employer] IS VERY ACTIVE. DISCUSSED MONTHLY BSE, MAMMOGRAM RECOMMENDED YEARLY AND GENETIC COUNSELING FOR FAM HX BREAST CANCER BELOW.Follow up: .Recommendations:-- YOU CAN CHECK WITH PHARMACY ABOUT THE SHINGRIX SHINGLES VACCINE COVERAGE- 2 DOSES 2-6 MONTHS [id number] Essential (primary) hypertensionNew Labs:CBC Auto Diff, Ordered: 04/29/18Comp Metabolic Panel, Ordered: 04/29/18Recommendations:-- YOUR BLOOD PRESSURE IS UNDER CONTROL, CONTINUE THE AMLODIPINE 10 MG PER DAYE55.9 Vitamin D deficiency, unspecifiedNew Labs:Vitamin D Total 25(Oh), Ordered: 04/29/18Follow up:.Recommendations:- MAKE SURE TO TAKE THE VITAMIN D3 2000 IU PER DAY- RESUME ITE78.00 Pure hypercholesterolemia, unspecifiedNew Labs:Lipid Profile (Trig/Chol/HDL), Ordered : 04/29/18Follow up:. -- RETURN FASTING BLOODWORKRecommendations:-- WE WILL REPEAT YOUR CHOLESTEROL PROFILE -- CONTINUE THE OATMEAL/ FIBER, ADD IN GROUND FLAXSEED 1-2 TABLESPOONS PER DAYE07.89 Other specified disorders of thyroidNew Labs:TSH (Thyroid Stim Horm), Ordered: 04/29/18Free T4 (Free Thyroxine), Ordered : 04/29/18Comments:THYROID STABLE ON PALPATION, MILDLY DIFFUSELY ENLARGED. REPEAT THYROID FUNCTION BW.Follow up:.F41.9 Anxiety disorder, unspecifiedComments:PT DOING WELL WITH JUST TRAZODONE AT NIGHT. HAS BEEN OFF FLUOXETINE. ENCOURAGED SELF CARE, EXERCISE.Recommendations:-- START REGULAR WALKING AGAIN, CONTINUE TRAZODONE AT DIZMYF00.3 Family history of malignant neoplasm of breastFollow up:.Recommendations:-- GET YOUR MAMMOGRAM IN MAY SCHEDULED -- YOU SHOULD ALSO GET MRI BREASTS ONCE PER YEAR DUE TO YOUR INCREASED RISK OF BREAST CANCER- WE CAN SET THIS UP FOR SO YOU HAVE SCREENING EVERY 6 MONTHS (MAMMOGRAM MAY, MRI ) -- MEET WITH [facility] FOR GENETIC OCHUHVMMWCB45.30 Sleep apnea, unspecifiedComments:PT SAYS BUSY LAST YEAR WITH 'S ILLNESS, SO DID NOT F/U WITH SLEEP CLINIC CONSULT. DISCUSSED IMPORTANCE OF TREATING SLEEP APNEA PROPERLY. PT AGREES TO GO TO SLEEP CLINIC.Follow up:. -REFER TO SLEEP CLINIC- H/O SLEEP APNEARecommendations:-- I STILL RECOMMEND FOLLOWING UP WITH THE SLEEP CLINIC FOR YOUR SLEEP GEMLUM90.5 Neoplasm of uncertain behavior of skinFollow up:. -- REFER TO DR. GRAZYNA CLIFTON DERMATOLOGY ATYPICAL NEVI ROBERT LEFT HIP, ALSO LICHEN PLANUS MOUTHRecommendations: -- SEE DR. CLIFTON FOR [id number] Impacted cerumen, left earComments:LEFT EAR FLUSHED IN USUAL FASHION WITH GOOD RESULTS, REMOVAL OF CERUMEN. TM NORMAL, CANAL MINIMALLY PINK/ IRRITATED AFTER FLUSHING, NO ABRASION. PT STILL FELT WATER IN EAR SO ALCOHOL DROPS INSTILLED WITH SOME RELIEF BUT CAUSED MILD BURNING AT CANAL, INSTRUCTED ON USING ALCOHOL DROPS AT HOME TONIGHT IFNEEDED, NOTIFY IF ANY PROBLEMS.Follow up:.
== END 2018-05-15 15:45 | disposition home health service (06) ==
LOC: UCEAST 15:06
DX: R07.9 Chest pain, unspecified (principal); Z87.891 Personal history of nicotine dependence; Z88.5 Allergy status to narcotic agent; Z88.0 Allergy status to penicillin
CPT/HCPCS: 99212; A9270-GY; G0463

== ENCOUNTER 2018-05-15 16:10 | Emergency (ER) | payer BC ==
--- NOTE | 2018-05-15 16:57 | ED ---
HPI Chest Pain - HPI Summary HPI Summary: A 58 y/o female presents to [facility] with a chief complaint of chest pain today. She reports her chest pain started a few hours ago and so she went to . At she was given 4 baby Aspirin and was instructed to come to the ED. At triage she rated her pain as a 3/10 in severity. She denies SOB, N/V or diaphoresis. She claims that nothing aggravates or alleviates her pain. She describes her chest pain as burning. FHx lung cancer - mother - History of Current Complaint Chief Complaint: EDChestPainROMI Time Seen by Provider: 05/15/18 16:56 Hx Obtained From: Patient Onset/Duration: Started Hours Ago, Still Present Timing: Lasting Hours Initial Severity: Mild Current Severity: Mild Pain Intensity: 3 Pain Scale Used: 0-10 Numeric Chest Pain Location: Diffuse Chest Pain Radiates: No Character: Burning Aggravating Factor(s): Nothing Alleviating Factor(s): Nothing Associated Signs and Symptoms: Negative: Shortness of Breath, Diaphoresis, Nausea, Vomiting - Allergy/Home Medications Allergies/Adverse Reactions: Allergies Allergy/AdvReac Type Severity Reaction Status Date / Time codeine Allergy Swelling Verified 05/15/18 16:25 Penicillins Allergy Swelling Verified 05/15/18 16:25 PMH/Surg Hx/FS Hx/Imm Hx Endocrine/Hematology History: Denies: Hx Diabetes Cardiovascular History: Reports: Hx Hypertension History: Denies: Hx Renal Disease - Surgical History Surgery Procedure, Year, and Place: partial hysterectomy Infectious Disease History: No Infectious Disease History: Denies: Traveled Outside the [place] in Last 30 Days - Family History Known Family History: Positive: Other - positive: lung cancer - mother - Social History Alcohol Use: Daily Substance Use Type: Reports: None Smoking Status (MU): Former Smoker Review of Systems Negative: Skin Diaphoresis Positive: Chest Pain Negative: Shortness Of Breath Negative: Vomiting, Nausea All Other Systems Reviewed And Are Negative: Yes Physical Exam - Summary Physical Exam Summary: Appearance: The patient is well-nourished in no acute distress and in no acute pain. Skin: The skin is warm and dry and skin color reflects adequate perfusion. HEENT: The head is normocephalic and atraumatic. The pupils are equal and reactive. The conjunctivae are clear and without drainage. Nares are patent and without drainage. Mouth reveals moist mucous membranes and the throat is without erythema and exudate. The external ears are intact. The ear canals are patent and without drainage. The tympanic membranes are intact. Neck: The neck is supple with full range of motion and non-tender. There are no carotid bruits. There is no neck vein distension. Respiratory: Chest is non-tender. Lungs are clear to auscultation and breath sounds are symmetrical and equal. Cardiovascular: Heart is regular rate and rhythm. There is no murmur or rub auscultated. There is no peripheral edema and pulses are symmetrical and equal. Abdomen: The abdomen is soft and non-tender. There are normal bowel sounds heard in all four quadrants and there is no organomegaly palpated. Musculoskeletal: There is no back tenderness noted. Extremities are non-tender with full range of motion. There is good capillary refill. There is no peripheral edema or calf tenderness elicited. Neurological: Patient is alert and oriented to person, place and time. The patient has symmetrical motor strength in all four extremities. Cranial nerves are grossly intact. Deep tendon reflexes are symmetrical and equal in all four extremities. Psychiatric: The patient has an appropriate affect and does not exhibit any anxiety or depression. Triage Information Reviewed: Yes Vital Signs On Initial Exam: Initial Vitals Temp Pulse Resp BP Pulse Ox 99.2 F 72 18 151/91 98 05/15/18 16:21 05/15/18 16:21 05/15/18 16:21 05/15/18 16:21 05/15/18 16:21 Vital Signs Reviewed: Yes Diagnostics - Vital Signs Vital Signs Temp Pulse Resp BP Pulse Ox 05/15/18 16:21 99.2 F 72 18 151/91 98 - Laboratory Result Diagrams: 05/15/18 17:14 05/15/18 17:14 Lab Statement: Any lab studies that have been ordered have been reviewed, and results considered in the medical decision making process. - Radiology CXR Radiology Interpretation Completed By: Radiologist Summary of Radiographic Findings: NO EVIDENCE FOR ACUTE DISEASE. ED physician has reviewed this imaging report. - EKG 16:19 Cardiac Rate: NL - 73 bpm EKG Rhythm: Sinus Rhythm Summary of EKG Findings: Normal sinus rhythm at 73 bpm, normal ST, no ectopy, no STEMI. Re-Evaluation - Re-Evaluation First Eval Re-Evaluation Time: 18:50 Change: Improved Comment: Patient feels a little better but not completely improved Chest Pain Course/Dx - Course Course Of Treatment: Ms. Caruso had the sudden onset of burning chest pain a couple hours prior to arrival. She had no associated symptoms or exacerbating or relieving factors. She thinks it's GERD. She was nontoxic in appearance stable vital signs. She is placed on a monitor and observed while labs, EKG and chest x-ray were obtained. She was given sucralfate which changed the pain somewhat but did not resolve it. She states that it feels like it is lower down now. She is just been given additional by mouth Prilosec and we're awaiting a second troponin. I expect that if her second troponin is negative she will be discharged. - Diagnoses Provider Diagnoses: Chest pain Discharge - Sign-Out/Discharge Documenting (check all that apply): Sign-Out Patient Signing out patient TO: Pierre Barillas - pending second troponin - Discharge Plan Referrals: Nette Arguelles MD [Primary Care Provider] - - Attestation Statements Document Initiated by Yanet: Yes Documenting Scribe: Cristian Wiley Provider For Whom Yanet is Documenting (Include Credential): Pierre Joseph MD Scribe Attestation: I, Cristian Wiley, scribed for Pierre Joseph MD on 05/15/18 at 1853. Scribe Documentation Reviewed: Yes Provider Attestation: The documentation as recorded by the Cristian carey accurately reflects the service I personally performed and the decisions made by me, Pierre Joseph MD Status of Scribe Document: Viewed
[2018-05-15] MEDS ORDERED: Sucralfate TAB* 1 GM PO ONE (17:05)
[2018-05-15 17:20] LABS: ABS Basophils 0.1 10^3/ul (0-0.2); ABS Eosinophils 0.2 10^3/ul (0-0.6); ABS Lymphocytes 1.7 10^3/ul (1.0-4.8); ABS Monocytes 0.5 10^3/ul (0-0.8); ABS Neutrophils 2.7 10^3/ul (1.5-7.7); ABS Nucleated RBC 0 10^3/ul; Eosinophil % 3.4 %; Hematocrit 38 % (33-41); Hemoglobin 13.2 g/dL (12.0-16.0); Lymphocyte % 33.9 %; Mean Corpuscular HGB Conc 35 g/dL (31-36); Mean Corpuscular Hemoglobin 30 pg (27-31); Mean Corpuscular Volume 87 fL (80-97); Nucleated Red Blood Cells % 0; Platelet Count 313 10^3/uL (150-450); Red Blood Count 4.39 10^6 /uL (3.70-4.87); Red Cell Distribution Width 13 % (10.5-15); White Blood Count 5.1 10^3/uL (3.5-10.8)
[2018-05-15 17:37] LABS: Albumin 4.3 g/dL (3.2-5.2); Albumin/Globulin Ratio 1.7 (1-3); BUN/Creatinine Ratio 25.9 (8-20); Calcium 8.9 mg/dL (8.6-10.3); EGFR African American 87.9 (>60); EGFR Non-African American 72.6 (>60); Globulin 2.6 g/dL (2-4); Potassium 3.6 mmol/L (3.5-5.0); Total Bilirubin 0.3 mg/dL (0.2-1.0); Total Protein 6.9 g/dL (6.4-8.9)
[2018-05-15 17:40] LABS: INR 0.9 (0.77-1.02)
[2018-05-15] MEDS ORDERED: Omeprazole CAP (NF) 20 MG CAP.DR PO ONE (18:49)
[2018-05-15] MEDS ORDERED: Pantoprazole TAB * 40 MG TAB PO ONE (19:52)
[2018-05-15 20:57] VITALS: BP 137/83
--- NOTE | 2018-05-15 21:15 | ED ---
Progress - Progress Note Progress Note: This patient was signed out from Dr. Joseph to Dr. Barillas at 1900 pending 2nd troponin test. This test was negative. I discussed results with patient and she reports feeling better. She is hemodynamically stable and safe for discharge. Strict return precautions given and she will otherwise follow up with her PCP. Re-Evaluation - Re-Evaluation First Eval Re-Evaluation Time: 21:16 Change: Improved Comment: Results and plan for discharge discussed with patient. Course/Dx - Course Course Of Treatment: This patient was signed out from Dr. Joseph to Dr. Barillas at 1900 pending 2nd troponin test. This test was negative. I discussed results with patient and she reports feeling better. She is hemodynamically stable and safe for discharge. Strict return precautions given and she will otherwise follow up with her PCP. - Diagnoses Provider Diagnoses: Chest pain Discharge - Sign-Out/Discharge Documenting (check all that apply): Patient Departure - Discharge Patient Received Moderate/Deep Sedation with Procedure: No - Discharge Plan Condition: Stable Disposition: HOME Patient Education Materials: Chest Pain (ED) Referrals: Nette Arguelles MD [Primary Care Provider] - 3 Days - Billing Disposition and Condition Condition: STABLE Disposition: Home - Attestation Statements Document Initiated by Yanet: Yes Documenting Scribe: Prasad Crow Provider For Whom Yanet is Documenting (Include Credential): Pierre Barillas MD Scribe Attestation: Prasad Underwood, scribed for Pierre Barillas MD on 05/15/18 at 7762. Scribe Documentation Reviewed: Yes Provider Attestation: The documentation as recorded by the Prasad carey accurately reflects the service I personally performed and the decisions made by me, Pierre Barillas MD Status of Scribe Document: Viewed
== END 2018-05-15 21:20 | disposition home or self-care (01) ==
LOC: ED 16:10
DX: R07.89 Other chest pain (principal); I10 Essential (primary) hypertension; Z88.5 Allergy status to narcotic agent; Z88.0 Allergy status to penicillin; Z87.891 Personal history of nicotine dependence
CPT/HCPCS: 36415; 71045; 80053; 83605; 84484; 85025; 85610; 93005; 99283; A9270-GY